=== PATIENT | male | born 1950 | race Caucasian/White ===

== ENCOUNTER 2018-08-16 21:06 | Inpatient (IN) | payer MEDICARE ==
[~2018-08-16] VITALS: Ht 188 cm; Wt 101.5 kg
[2018-08-16 21:38] LABS: BASOPHILS # (AUTO) 0.1 X10'3 (0-0.2); BASOPHILS % (AUTO) 1.2 % (0-1); EOSINOPHILS # (AUTO) 0.1 X10'3 (0-0.9); EOSINOPHILS % (AUTO) 1.5 % (0-6); HEMATOCRIT 41.3 % (42.0-52.0); HEMOGLOBIN 13.6 g/dl (14.0-17.9); LYMPHOCYTES # (AUTO) 2.4 X10'3 (1.1-4.8); LYMPHOCYTES % (AUTO) 24.7 % (21-51); MEAN CORPUSCULAR HEMOGLOBIN 30.8 PG (27.0-31.0); MEAN CORPUSCULAR VOLUME 93.6 FL (78-98); MEAN PLATELET VOLUME 6.3 FL (7.4-10.4); MONOCYTES # (AUTO) 0.7 X10'3 (0-0.9); MONOCYTES % (AUTO) 6.8 % (2-12); NEUTROPHILS # (AUTO) 6.4 X10'3 (1.8-7.7); NEUTROPHILS % (AUTO) 65.8 % (42-75); PLATELET COUNT 339 X10'3 (140-440); RED BLOOD COUNT 4.42 X10'6 (4.70-6.10); RED CELL DISTRIBUTION WIDTH 13.5 % (11.5-14.5); WHITE BLOOD COUNT 9.7 X10'3 (4.5-11.0)
[2018-08-16] MEDS ORDERED: HYDROmorphone inj. 0.5 MG/0.5 ML DISP.SYRIN IV ONE (21:40)
[2018-08-16] MEDS ORDERED: normal saline 1000ML IV soln IVB ONE (21:40)
[2018-08-16] MEDS ORDERED: ondansetron/PF 4mg/2ml inj IV ONE (21:40)
[2018-08-16] MEDS ORDERED: levoFLOXACIN-Levaquin 750MG/D5 150 ML IV ONE (21:40)
[2018-08-16 21:57] LABS: ALANINE AMINOTRANSFERASE 25 U/L (12-78); ALBUMIN 3.2 G/DL (3.4-5.0); ALBUMIN/GLOBULIN RATIO 0.8 (1.1-1.5); ALKALINE PHOSPHATASE 83 IU/L (46-116); ANION GAP 10 (8-16); ASPARTATE AMINO TRANSFERASE 15 U/L (10-37); BILIRUBIN,TOTAL 0.4 MG/DL (0.1-1.0); BLOOD UREA NITROGEN 17 MG/DL (7-18); BUN/CREATININE RATIO 15.5 (5.4-32.0); CALCIUM 8.8 MG/DL (8.5-10.1); CHLORIDE 103 MMOL/L (99-107); GLUCOSE 102 MG/DL (70-104); INR 1.5 INR; PARTIAL THROMBOPLASTIN TIME 39 SECONDS (22-32); SODIUM 139 MMOL/L (135-145); TOTAL CARBON DIOXIDE 26.2 MMOL/L (24-32); TOTAL PROTEIN 7.1 G/DL (6.4-8.2); eGFR 67 ML/MIN
[2018-08-16] MEDS ORDERED: iohexol 350MG/ML 100ml bottle IV ONE (22:00)
[2018-08-16] MEDS ORDERED: enoxaparin 100mg/ml syringe SUBCUT ONE (22:30)
[2018-08-16] MEDS ORDERED: LORA0.5T PO (23:10)
[2018-08-16] MEDS ORDERED: MONT10TA21 PO (23:10)
[2018-08-16] MEDS ORDERED: BENA40TA73 PO (23:10)
[2018-08-16] MEDS ORDERED: LIOT25TA6 PO (23:10)
[2018-08-16] MEDS ORDERED: BUDE10.2 INH (23:10)
[2018-08-16] MEDS ORDERED: LEVO150T PO (23:10)
[2018-08-16] MEDS ORDERED: TIOT18CA3 (23:10)
[2018-08-16] MEDS ORDERED: TIOT4MIS5 (23:10)
[2018-08-16] MEDS ORDERED: RABE20TA28 PO (23:10)
[2018-08-16] MEDS ORDERED: TRAM50TA2 PO (23:10)
[2018-08-16] MEDS ORDERED: WARF3TAB PO (23:12)
[2018-08-17] MEDS ORDERED: magnesium hydroxide 30ml (MOM) UD suspension PO PRN (00:55)
[2018-08-17] MEDS ORDERED: mag hydrox/Alum hydrox/simeth 30ml oral suspension PO PRN (00:55)
[2018-08-17] MEDS ORDERED: HYDROmorphone 1 mg/ml syringe IV PRN ×2 (00:55)
[2018-08-17] MEDS ORDERED: acetaminophen 325mg tablet PO PRN ×2 (00:55)
[2018-08-17 03:00] VITALS: BP 162/86
[2018-08-17] MEDS ORDERED: ipratropium/albuterol 3ml nebule NEB PRN (03:10)
[2018-08-17] MEDS ORDERED: digoxin 250mcg/ml 2ml ampule IV ONE (05:00)
[2018-08-17] MEDS: VANCOMYCIN IV SCH ×2 (05:06→07:00)
[2018-08-17] MEDS: SODIUM CHLORIDE IV SCH ×2 (05:06→07:00)
[2018-08-17] MEDS: [UNRECOGNIZED DRUG - OTHER] IV SCH ×2 (05:06→07:00)
[2018-08-17 06:00] VITALS: BP 173/81
[2018-08-17] MEDS: budesonide 0.5mg/2ml UD nebule IH SCH ×2 (07:07→20:18)
[2018-08-17] MEDS: albuterol 2.5 MG/3 ML nebule NEB SCH ×2 (07:07→10:18)
[2018-08-17] MEDS: docusate sod 100mg capsule PO SCH ×2 (08:00→21:17)
[2018-08-17] MEDS ORDERED: non-formulary drug (Budesonide/Formoterol Fumarate (Symbicort 160-4.5 Mcg Inhaler) 2 PUFFS INH SCH (08:00)
[2018-08-17] MEDS: cefepime 1GM/NS ADD-VANTAGE 100 ML IV SCH ×2 (08:00→16:36)
[2018-08-17] MEDS: enoxaparin 100mg/ml syringe SUBCUT SCH ×2 (08:23→21:17)
[2018-08-17] MEDS: levoTHYROXINE 75mcg tablet PO SCH (08:25)
[2018-08-17] MEDS: lisinopril 20mg tablet PO SCH (08:27)
[2018-08-17] MEDS: montelukast 10mg tablet PO SCH (08:27)
[2018-08-17] MEDS: LIOthyronine 25mcg tablet PO SCH (08:28)
[2018-08-17 09:42] LABS: BASOPHILS # (AUTO) 0.1 X10'3 (0-0.2); BASOPHILS % (AUTO) 0.5 % (0-1); EOSINOPHILS # (AUTO) 0.1 X10'3 (0-0.9); EOSINOPHILS % (AUTO) 0.5 % (0-6); HEMOGLOBIN 13.3 g/dl (14.0-17.9); LYMPHOCYTES # (AUTO) 2.7 X10'3 (1.1-4.8); LYMPHOCYTES % (AUTO) 20.7 % (21-51); MEAN CORPUSCULAR HEMOGLOBIN 31.2 PG (27.0-31.0); MEAN CORPUSCULAR HGB CONC 33.2 % (33.0-36.5); MEAN PLATELET VOLUME 6.5 FL (7.4-10.4); MONOCYTES # (AUTO) 0.8 X10'3 (0-0.9); MONOCYTES % (AUTO) 6.2 % (2-12); NEUTROPHILS # (AUTO) 9.2 X10'3 (1.8-7.7); NEUTROPHILS % (AUTO) 72.1 % (42-75); PLATELET COUNT 295 X10'3 (140-440); RED BLOOD COUNT 4.26 X10'6 (4.70-6.10); RED CELL DISTRIBUTION WIDTH 13.9 % (11.5-14.5); WHITE BLOOD COUNT 12.8 X10'3 (4.5-11.0)
[2018-08-17 09:51] LABS: ANION GAP 8 (8-16); BLOOD UREA NITROGEN 15 MG/DL (7-18); BUN/CREATININE RATIO 13.2 (5.4-32.0); CALCIUM 8.9 MG/DL (8.5-10.1); CHLORIDE 101 MMOL/L (99-107); CREATININE 1.14 MG/DL (0.60-1.10); GLUCOSE 84 MG/DL (70-104); POTASSIUM 4.3 MMOL/L (3.5-5.1); SODIUM 136 MMOL/L (135-145); TOTAL CARBON DIOXIDE 27.1 MMOL/L (24-32); eGFR 64 ML/MIN
[2018-08-17 11:00] VITALS: BP 168/84
[2018-08-17] MEDS: HYDROmorphone/NS 1 mg/ml CADD 50 ML IV SCH ×8 (11:00→23:00)
[2018-08-17] MEDS ORDERED: VANCOMYCIN IV ONE (11:45)
[2018-08-17] MEDS ORDERED: [UNRECOGNIZED DRUG - OTHER] IV ONE (11:45)
[2018-08-17] MEDS ORDERED: SODIUM CHLORIDE IV ONE (11:45)
[2018-08-17] MEDS: ipratropium/albuterol 3ml nebule NEB SCH ×4 (12:00→23:42)
[2018-08-17 15:00] VITALS: BP 123/73
[2018-08-17] MEDS: methylPREDNISolone sod succ 125mg/2ml vial IV SCH ×2 (16:29→21:18)
[2018-08-17 19:00] VITALS: BP 160/84
[2018-08-17] MEDS: lactobacillus rhamnosus 10,000 MMU CELLS/CAPSULE PO SCH (21:17)
[2018-08-17 23:00] VITALS: BP 144/102
[2018-08-18] MEDS: cefepime 1GM/NS ADD-VANTAGE 100 ML IV SCH ×4 (00:50→23:37)
[2018-08-18] MEDS: HYDROmorphone/NS 1 mg/ml CADD 50 ML IV SCH ×12 (00:55→23:00)
[2018-08-18] MEDS: methylPREDNISolone sod succ 125mg/2ml vial IV SCH ×4 (02:44→23:38)
[2018-08-18 03:00] VITALS: BP 134/79
[2018-08-18] MEDS: ipratropium/albuterol 3ml nebule NEB SCH ×6 (03:10→23:50)
[2018-08-18 05:07] LABS: BASOPHILS # (AUTO) 0.1 X10'3 (0-0.2); EOSINOPHILS % (AUTO) 0 % (0-6); HEMATOCRIT 41.5 % (42.0-52.0); HEMOGLOBIN 13.9 g/dl (14.0-17.9); LYMPHOCYTES # (AUTO) 0.7 X10'3 (1.1-4.8); LYMPHOCYTES % (AUTO) 5.7 % (21-51); MEAN CORPUSCULAR HEMOGLOBIN 31.4 PG (27.0-31.0); MEAN CORPUSCULAR HGB CONC 33.5 % (33.0-36.5); MEAN CORPUSCULAR VOLUME 93.7 FL (78-98); MONOCYTES # (AUTO) 0.1 X10'3 (0-0.9); MONOCYTES % (AUTO) 0.6 % (2-12); NEUTROPHILS # (AUTO) 10.7 X10'3 (1.8-7.7); NEUTROPHILS % (AUTO) 92.7 % (42-75); PLATELET COUNT 329 X10'3 (140-440); RED BLOOD COUNT 4.43 X10'6 (4.70-6.10); RED CELL DISTRIBUTION WIDTH 13.4 % (11.5-14.5); WHITE BLOOD COUNT 11.5 X10'3 (4.5-11.0)
[2018-08-18 05:25] LABS: ALBUMIN 3.1 G/DL (3.4-5.0); ANION GAP 12 (8-16); BLOOD UREA NITROGEN 22 MG/DL (7-18); BUN/CREATININE RATIO 16.8 (5.4-32.0); CALCIUM 9.6 MG/DL (8.5-10.1); CHLORIDE 101 MMOL/L (99-107); CREATININE 1.31 MG/DL (0.60-1.10); GLUCOSE 183 MG/DL (70-104); POTASSIUM 3.9 MMOL/L (3.5-5.1); SODIUM 137 MMOL/L (135-145); TOTAL CARBON DIOXIDE 23.6 MMOL/L (24-32); eGFR 54 ML/MIN
[2018-08-18 06:00] VITALS: BP 102/68
[2018-08-18] MEDS: budesonide 0.5mg/2ml UD nebule IH SCH ×2 (07:51→19:59)
[2018-08-18] MEDS: docusate sod 100mg capsule PO SCH ×2 (08:00→20:00)
[2018-08-18] MEDS: lactobacillus rhamnosus 10,000 MMU CELLS/CAPSULE PO SCH ×2 (09:04→20:59)
[2018-08-18] MEDS: levoTHYROXINE 75mcg tablet PO SCH (09:05)
[2018-08-18] MEDS: montelukast 10mg tablet PO SCH (09:06)
[2018-08-18] MEDS: lisinopril 20mg tablet PO SCH (09:07)
[2018-08-18] MEDS: enoxaparin 100mg/ml syringe SUBCUT SCH ×2 (09:08→20:41)
[2018-08-18] MEDS: LIOthyronine 25mcg tablet PO SCH (09:09)
[2018-08-18] MEDS: pantoprazole 40mg Tablet.DR PO SCH (09:14)
[2018-08-18 11:00] VITALS: BP 107/55
[2018-08-18 15:00] VITALS: BP 131/70
[2018-08-18] MEDS: ondansetron/PF 4mg/2ml inj IV PRN (17:07)
[2018-08-18 18:00] VITALS: BP 130/65
[2018-08-18] MEDS: Melatonin 3mg tablet PO SCH (20:59)
[2018-08-18] MEDS: temazepam 15mg capsule PO PRN (21:27)
[2018-08-18 22:00] VITALS: BP 117/60
[2018-08-19] MEDS: HYDROmorphone/NS 1 mg/ml CADD 50 ML IV SCH ×12 (01:00→23:00)
[2018-08-19 02:00] VITALS: BP 146/80
[2018-08-19] MEDS ORDERED: VANCOMYCIN LEVEL IV NR ×2 (03:30→15:30)
[2018-08-19] MEDS: ondansetron/PF 4mg/2ml inj IV PRN (04:55)
[2018-08-19 06:00] VITALS: BP 148/83
[2018-08-19 06:02] LABS: BASOPHILS # (AUTO) 0.2 X10'3 (0-0.2); BASOPHILS % (AUTO) 0.9 % (0-1); EOSINOPHILS % (AUTO) 0 % (0-6); HEMATOCRIT 37.8 % (42.0-52.0); HEMOGLOBIN 12.5 g/dl (14.0-17.9); LYMPHOCYTES # (AUTO) 0.9 X10'3 (1.1-4.8); LYMPHOCYTES % (AUTO) 5.3 % (21-51); MEAN CORPUSCULAR HEMOGLOBIN 31.2 PG (27.0-31.0); MEAN CORPUSCULAR VOLUME 94.3 FL (78-98); MEAN PLATELET VOLUME 7.3 FL (7.4-10.4); MONOCYTES # (AUTO) 0.3 X10'3 (0-0.9); MONOCYTES % (AUTO) 1.6 % (2-12); NEUTROPHILS # (AUTO) 15.7 X10'3 (1.8-7.7); NEUTROPHILS % (AUTO) 92.2 % (42-75); PLATELET COUNT 310 X10'3 (140-440); RED BLOOD COUNT 4.01 X10'6 (4.70-6.10); RED CELL DISTRIBUTION WIDTH 13.5 % (11.5-14.5)
[2018-08-19 07:06] LABS: ALBUMIN 2.8 G/DL (3.4-5.0); ANION GAP 8 (8-16); BLOOD UREA NITROGEN 33 MG/DL (7-18); BUN/CREATININE RATIO 27.3 (5.4-32.0); CALCIUM 8.9 MG/DL (8.5-10.1); CHLORIDE 104 MMOL/L (99-107); CREATININE 1.21 MG/DL (0.60-1.10); GLUCOSE 137 MG/DL (70-104); POTASSIUM 4.2 MMOL/L (3.5-5.1); SODIUM 139 MMOL/L (135-145); TOTAL CARBON DIOXIDE 26.8 MMOL/L (24-32); eGFR 60 ML/MIN
[2018-08-19] MEDS: pantoprazole 40mg Tablet.DR PO SCH (07:30)
[2018-08-19] MEDS: budesonide 0.5mg/2ml UD nebule IH SCH ×2 (07:32→20:05)
[2018-08-19] MEDS: ipratropium/albuterol 3ml nebule NEB SCH ×4 (07:32→23:52)
[2018-08-19] MEDS: docusate sod 100mg capsule PO SCH ×2 (08:00→20:00)
[2018-08-19] MEDS: cefepime 1GM/NS ADD-VANTAGE 100 ML IV SCH ×3 (09:27→23:26)
[2018-08-19] MEDS: methylPREDNISolone sod succ 125mg/2ml vial IV SCH ×2 (09:27→20:51)
[2018-08-19] MEDS: enoxaparin 100mg/ml syringe SUBCUT SCH ×2 (09:27→20:35)
[2018-08-19] MEDS: LIOthyronine 25mcg tablet PO SCH (09:28)
[2018-08-19] MEDS: levoTHYROXINE 75mcg tablet PO SCH (09:28)
[2018-08-19] MEDS: lactobacillus rhamnosus 10,000 MMU CELLS/CAPSULE PO SCH ×2 (09:31→20:52)
[2018-08-19] MEDS: montelukast 10mg tablet PO SCH (09:32)
[2018-08-19] MEDS: lisinopril 20mg tablet PO SCH (09:32)
[2018-08-19] MEDS: RABEPRAZOLE PO SCH (14:01)
[2018-08-19 15:00] VITALS: BP 138/74
[2018-08-19 19:00] VITALS: BP 145/75
[2018-08-19] MEDS: temazepam 15mg capsule PO PRN (20:33)
[2018-08-19] MEDS: Melatonin 3mg tablet PO SCH (20:36)
[2018-08-19 23:00] VITALS: BP 144/74
[2018-08-20] MEDS: HYDROmorphone/NS 1 mg/ml CADD 50 ML IV SCH ×12 (01:00→23:00)
[2018-08-20 03:00] VITALS: BP 129/65
[2018-08-20] MEDS: ipratropium/albuterol 3ml nebule NEB SCH ×4 (04:04→19:38)
[2018-08-20 06:09] LABS: BASOPHILS # (AUTO) 0.1 X10'3 (0-0.2); BASOPHILS % (AUTO) 0.5 % (0-1); EOSINOPHILS # (AUTO) 0.2 X10'3 (0-0.9); EOSINOPHILS % (AUTO) 1.4 % (0-6); HEMATOCRIT 35.4 % (42.0-52.0); HEMOGLOBIN 11.7 g/dl (14.0-17.9); LYMPHOCYTES # (AUTO) 0.7 X10'3 (1.1-4.8); LYMPHOCYTES % (AUTO) 5.8 % (21-51); MEAN CORPUSCULAR HEMOGLOBIN 31.1 PG (27.0-31.0); MEAN CORPUSCULAR VOLUME 94.2 FL (78-98); MEAN PLATELET VOLUME 7.5 FL (7.4-10.4); MONOCYTES # (AUTO) 0.3 X10'3 (0-0.9); MONOCYTES % (AUTO) 2.1 % (2-12); NEUTROPHILS # (AUTO) 10.9 X10'3 (1.8-7.7); NEUTROPHILS % (AUTO) 90.2 % (42-75); PLATELET COUNT 308 X10'3 (140-440); RED BLOOD COUNT 3.75 X10'6 (4.70-6.10); RED CELL DISTRIBUTION WIDTH 13.5 % (11.5-14.5); WHITE BLOOD COUNT 12.1 X10'3 (4.5-11.0)
[2018-08-20 06:24] LABS: ALBUMIN 2.6 G/DL (3.4-5.0); ANION GAP 11 (8-16); BLOOD UREA NITROGEN 25 MG/DL (7-18); BUN/CREATININE RATIO 21.2 (5.4-32.0); CALCIUM 8.5 MG/DL (8.5-10.1); CHLORIDE 105 MMOL/L (99-107); CREATININE 1.18 MG/DL (0.60-1.10); GLUCOSE 191 MG/DL (70-104); POTASSIUM 4.3 MMOL/L (3.5-5.1); SODIUM 139 MMOL/L (135-145); TOTAL CARBON DIOXIDE 22.6 MMOL/L (24-32); eGFR 61 ML/MIN
[2018-08-20] MEDS: RABEPRAZOLE PO SCH (07:34)
[2018-08-20] MEDS: montelukast 10mg tablet PO SCH (07:35)
[2018-08-20] MEDS: LIOthyronine 25mcg tablet PO SCH (07:35)
[2018-08-20] MEDS: levoTHYROXINE 75mcg tablet PO SCH (07:35)
[2018-08-20] MEDS: lisinopril 20mg tablet PO SCH (07:35)
[2018-08-20] MEDS: lactobacillus rhamnosus 10,000 MMU CELLS/CAPSULE PO SCH ×2 (07:35→20:40)
[2018-08-20] MEDS: cefepime 1GM/NS ADD-VANTAGE 100 ML IV SCH ×2 (07:37→16:59)
[2018-08-20] MEDS: methylPREDNISolone sod succ 125mg/2ml vial IV SCH (07:37)
[2018-08-20] MEDS: docusate sod 100mg capsule PO SCH ×2 (07:37→20:00)
[2018-08-20] MEDS: enoxaparin 100mg/ml syringe SUBCUT SCH ×2 (08:00→20:42)
[2018-08-20] MEDS: budesonide 0.5mg/2ml UD nebule IH SCH ×2 (08:29→19:38)
[2018-08-20 11:00] VITALS: BP_SYST 148; BP_SYST 93; BP_DIAS 65; BP_DIAS 68
[2018-08-20] MEDS: furosemide 20MG tablet PO SCH (11:37)
[2018-08-20 15:00] VITALS: BP 137/77
[2018-08-20 19:00] VITALS: BP 157/91
[2018-08-20] MEDS: temazepam 15mg capsule PO PRN (20:40)
[2018-08-20] MEDS: methylPREDNISolone sod succ/PF 40mg inj. IV SCH (20:40)
[2018-08-20] MEDS: Melatonin 3mg tablet PO SCH (20:41)
[2018-08-20 23:00] VITALS: BP 160/78
[2018-08-21] MEDS: cefepime 1GM/NS ADD-VANTAGE 100 ML IV SCH ×3 (00:22→17:28)
[2018-08-21] MEDS: HYDROmorphone/NS 1 mg/ml CADD 50 ML IV SCH ×12 (01:00→23:00)
[2018-08-21 03:00] VITALS: BP 130/55
[2018-08-21] MEDS: ipratropium/albuterol 3ml nebule NEB SCH ×7 (04:00→23:17)
[2018-08-21 06:32] LABS: BASOPHILS # (AUTO) 0.1 X10'3 (0-0.2); BASOPHILS % (AUTO) 0.8 % (0-1); EOSINOPHILS % (AUTO) 0 % (0-6); HEMATOCRIT 38.5 % (42.0-52.0); HEMOGLOBIN 12.7 g/dl (14.0-17.9); LYMPHOCYTES % (AUTO) 12.6 % (21-51); MEAN CORPUSCULAR HEMOGLOBIN 31.1 PG (27.0-31.0); MEAN CORPUSCULAR VOLUME 94.2 FL (78-98); MEAN PLATELET VOLUME 7.5 FL (7.4-10.4); MONOCYTES # (AUTO) 0.3 X10'3 (0-0.9); MONOCYTES % (AUTO) 4.1 % (2-12); NEUTROPHILS # (AUTO) 6.8 X10'3 (1.8-7.7); NEUTROPHILS % (AUTO) 82.5 % (42-75); PLATELET COUNT 331 X10'3 (140-440); RED BLOOD COUNT 4.08 X10'6 (4.70-6.10); RED CELL DISTRIBUTION WIDTH 13.5 % (11.5-14.5); WHITE BLOOD COUNT 8.3 X10'3 (4.5-11.0)
[2018-08-21 06:38] LABS: ALBUMIN 2.8 G/DL (3.4-5.0); ANION GAP 7 (8-16); BLOOD UREA NITROGEN 23 MG/DL (7-18); BUN/CREATININE RATIO 22.1 (5.4-32.0); CALCIUM 8.7 MG/DL (8.5-10.1); CHLORIDE 105 MMOL/L (99-107); CREATININE 1.04 MG/DL (0.60-1.10); GLUCOSE 119 MG/DL (70-104); POTASSIUM 4.3 MMOL/L (3.5-5.1); SODIUM 139 MMOL/L (135-145); TOTAL CARBON DIOXIDE 27.2 MMOL/L (24-32); eGFR 71 ML/MIN
[2018-08-21 07:00] VITALS: BP 166/79
[2018-08-21] MEDS: methylPREDNISolone sod succ/PF 40mg inj. IV SCH ×2 (07:20→20:14)
[2018-08-21] MEDS: montelukast 10mg tablet PO SCH (07:21)
[2018-08-21] MEDS: LIOthyronine 25mcg tablet PO SCH (07:21)
[2018-08-21] MEDS: levoTHYROXINE 125mcg tablet PO SCH (07:21)
[2018-08-21] MEDS: furosemide 20MG tablet PO SCH ×2 (07:21→20:26)
[2018-08-21] MEDS: lisinopril 20mg tablet PO SCH (07:21)
[2018-08-21] MEDS: enoxaparin 100mg/ml syringe SUBCUT SCH ×2 (07:21→20:16)
[2018-08-21] MEDS: lactobacillus rhamnosus 10,000 MMU CELLS/CAPSULE PO SCH ×2 (07:21→20:14)
[2018-08-21] MEDS: docusate sod 100mg capsule PO SCH ×2 (07:22→20:00)
[2018-08-21] MEDS: RABEPRAZOLE PO SCH (07:22)
[2018-08-21] MEDS: budesonide 0.5mg/2ml UD nebule IH SCH ×2 (08:03→19:34)
[2018-08-21 11:00] VITALS: BP 121/78
[2018-08-21 15:00] VITALS: BP 141/81
[2018-08-21 18:00] VITALS: BP 160/75
[2018-08-21] MEDS: Melatonin 3mg tablet PO SCH (21:29)
[2018-08-21 22:00] VITALS: BP 157/74
[2018-08-21] MEDS: temazepam 15mg capsule PO PRN (22:15)
[2018-08-22] MEDS: cefepime 1GM/NS ADD-VANTAGE 100 ML IV SCH ×4 (00:21→23:40)
[2018-08-22] MEDS: HYDROmorphone/NS 1 mg/ml CADD 50 ML IV SCH ×12 (00:48→23:00)
[2018-08-22 02:00] VITALS: BP 142/69
[2018-08-22] MEDS: ipratropium/albuterol 3ml nebule NEB SCH ×6 (03:12→23:00)
[2018-08-22 06:00] VITALS: BP 174/88
[2018-08-22 06:32] LABS: BASOPHILS # (AUTO) 0.1 X10'3 (0-0.2); BASOPHILS % (AUTO) 1.1 % (0-1); EOSINOPHILS % (AUTO) 0 % (0-6); HEMATOCRIT 36.9 % (42.0-52.0); HEMOGLOBIN 12.3 g/dl (14.0-17.9); LYMPHOCYTES # (AUTO) 1.4 X10'3 (1.1-4.8); LYMPHOCYTES % (AUTO) 17.8 % (21-51); MEAN CORPUSCULAR HEMOGLOBIN 31.1 PG (27.0-31.0); MEAN CORPUSCULAR HGB CONC 33.4 % (33.0-36.5); MEAN CORPUSCULAR VOLUME 93.3 FL (78-98); MEAN PLATELET VOLUME 7.2 FL (7.4-10.4); MONOCYTES # (AUTO) 0.4 X10'3 (0-0.9); MONOCYTES % (AUTO) 5.4 % (2-12); NEUTROPHILS # (AUTO) 5.9 X10'3 (1.8-7.7); NEUTROPHILS % (AUTO) 75.7 % (42-75); PLATELET COUNT 313 X10'3 (140-440); RED BLOOD COUNT 3.95 X10'6 (4.70-6.10); RED CELL DISTRIBUTION WIDTH 13.4 % (11.5-14.5); WHITE BLOOD COUNT 7.8 X10'3 (4.5-11.0)
[2018-08-22 06:46] LABS: ALBUMIN 2.7 G/DL (3.4-5.0); ANION GAP 7 (8-16); BLOOD UREA NITROGEN 21 MG/DL (7-18); BUN/CREATININE RATIO 19.3 (5.4-32.0); CALCIUM 8.4 MG/DL (8.5-10.1); CHLORIDE 103 MMOL/L (99-107); CREATININE 1.09 MG/DL (0.60-1.10); GLUCOSE 134 MG/DL (70-104); SODIUM 140 MMOL/L (135-145); TOTAL CARBON DIOXIDE 29.8 MMOL/L (24-32); eGFR 67 ML/MIN
[2018-08-22] MEDS: RABEPRAZOLE PO SCH (08:00)
[2018-08-22] MEDS: docusate sod 100mg capsule PO SCH (08:00)
[2018-08-22] MEDS: lisinopril 20mg tablet PO SCH (08:55)
[2018-08-22] MEDS: enoxaparin 100mg/ml syringe SUBCUT SCH ×2 (09:01→19:55)
[2018-08-22] MEDS: methylPREDNISolone sod succ/PF 40mg inj. IV SCH ×2 (09:04→19:57)
[2018-08-22] MEDS: furosemide 20MG tablet PO SCH ×2 (09:10→19:57)
[2018-08-22] MEDS: montelukast 10mg tablet PO SCH (09:10)
[2018-08-22] MEDS: lactobacillus rhamnosus 10,000 MMU CELLS/CAPSULE PO SCH ×2 (09:10→19:57)
[2018-08-22] MEDS: levoTHYROXINE 125mcg tablet PO SCH (09:11)
[2018-08-22] MEDS: LIOthyronine 25mcg tablet PO SCH (09:11)
[2018-08-22] MEDS: budesonide 0.5mg/2ml UD nebule IH SCH ×2 (09:30→19:14)
[2018-08-22 10:00] VITALS: BP 178/89
[2018-08-22] MEDS ORDERED: ipratropium/albuterol 3ml nebule NEB PRN (10:50)
[2018-08-22 15:00] VITALS: BP 163/90
[2018-08-22 18:00] VITALS: BP 160/83
[2018-08-22] MEDS: Melatonin 3mg tablet PO PRN (20:59)
[2018-08-22] MEDS: temazepam 15mg capsule PO PRN (21:31)
[2018-08-22 22:00] VITALS: BP 169/79
[2018-08-23] VITALS (7 sets, daily range): BP systolic 137–167; BP diastolic 74–126
[2018-08-23] MEDS: HYDROmorphone/NS 1 mg/ml CADD 50 ML IV SCH ×12 (01:00→22:12)
[2018-08-23 05:54] LABS: BASOPHILS # (AUTO) 0.1 X10'3 (0-0.2); BASOPHILS % (AUTO) 0.7 % (0-1); EOSINOPHILS # (AUTO) 0.1 X10'3 (0-0.9); EOSINOPHILS % (AUTO) 1.4 % (0-6); HEMATOCRIT 39.1 % (42.0-52.0); HEMOGLOBIN 13.1 g/dl (14.0-17.9); LYMPHOCYTES # (AUTO) 1.7 X10'3 (1.1-4.8); LYMPHOCYTES % (AUTO) 16.8 % (21-51); MEAN CORPUSCULAR HEMOGLOBIN 31.3 PG (27.0-31.0); MEAN CORPUSCULAR HGB CONC 33.4 % (33.0-36.5); MEAN CORPUSCULAR VOLUME 93.8 FL (78-98); MEAN PLATELET VOLUME 7.1 FL (7.4-10.4); MONOCYTES # (AUTO) 0.5 X10'3 (0-0.9); MONOCYTES % (AUTO) 5.3 % (2-12); NEUTROPHILS # (AUTO) 7.6 X10'3 (1.8-7.7); NEUTROPHILS % (AUTO) 75.8 % (42-75); PLATELET COUNT 334 X10'3 (140-440); RED BLOOD COUNT 4.17 X10'6 (4.70-6.10); RED CELL DISTRIBUTION WIDTH 13.7 % (11.5-14.5)
[2018-08-23 06:06] LABS: ALBUMIN 2.7 G/DL (3.4-5.0); ANION GAP 7 (8-16); BLOOD UREA NITROGEN 21 MG/DL (7-18); BUN/CREATININE RATIO 19.6 (5.4-32.0); CALCIUM 8.7 MG/DL (8.5-10.1); CHLORIDE 102 MMOL/L (99-107); CREATININE 1.07 MG/DL (0.60-1.10); GLUCOSE 114 MG/DL (70-104); POTASSIUM 4.2 MMOL/L (3.5-5.1); SODIUM 139 MMOL/L (135-145); TOTAL CARBON DIOXIDE 30.3 MMOL/L (24-32); eGFR 69 ML/MIN
[2018-08-23] MEDS: LIOthyronine 25mcg tablet PO SCH (07:25)
[2018-08-23] MEDS: levoTHYROXINE 75mcg tablet PO SCH (07:26)
[2018-08-23] MEDS: lisinopril 20mg tablet PO SCH (07:27)
[2018-08-23] MEDS: furosemide 20MG tablet PO SCH ×2 (07:28→20:11)
[2018-08-23] MEDS: montelukast 10mg tablet PO SCH (07:28)
[2018-08-23] MEDS: lactobacillus rhamnosus 10,000 MMU CELLS/CAPSULE PO SCH ×2 (07:28→20:11)
[2018-08-23] MEDS: RABEPRAZOLE PO SCH (07:29)
[2018-08-23] MEDS: enoxaparin 100mg/ml syringe SUBCUT SCH ×2 (07:33→20:18)
[2018-08-23] MEDS: methylPREDNISolone sod succ/PF 40mg inj. IV SCH ×2 (07:39→20:12)
[2018-08-23] MEDS: cefepime 1GM/NS ADD-VANTAGE 100 ML IV SCH ×2 (07:47→15:32)
[2018-08-23] MEDS: ipratropium/albuterol 3ml nebule NEB SCH ×5 (08:28→23:00)
[2018-08-23] MEDS: budesonide 0.5mg/2ml UD nebule IH SCH ×2 (08:28→20:00)
[2018-08-23] MEDS: LORazepam 2 mg/ml vial IV PRN (15:31)
[2018-08-23] MEDS: Melatonin 3mg tablet PO PRN (21:52)
[2018-08-23] MEDS: temazepam 15mg capsule PO PRN (22:20)
[2018-08-24] MEDS: cefepime 1GM/NS ADD-VANTAGE 100 ML IV SCH ×3 (00:05→16:40)
[2018-08-24] MEDS: LORazepam 2 mg/ml vial IV PRN ×3 (00:18→19:12)
[2018-08-24] MEDS: HYDROmorphone/NS 1 mg/ml CADD 50 ML IV SCH ×12 (01:00→23:00)
[2018-08-24 02:00] VITALS: BP 115/76
[2018-08-24 06:05] LABS: BASOPHILS # (AUTO) 0.1 X10'3 (0-0.2); BASOPHILS % (AUTO) 1.2 % (0-1); EOSINOPHILS % (AUTO) 0 % (0-6); HEMATOCRIT 39.5 % (42.0-52.0); HEMOGLOBIN 12.9 g/dl (14.0-17.9); LYMPHOCYTES # (AUTO) 1.9 X10'3 (1.1-4.8); LYMPHOCYTES % (AUTO) 18.5 % (21-51); MEAN CORPUSCULAR HEMOGLOBIN 30.8 PG (27.0-31.0); MEAN CORPUSCULAR HGB CONC 32.7 % (33.0-36.5); MEAN CORPUSCULAR VOLUME 94.2 FL (78-98); MEAN PLATELET VOLUME 7.4 FL (7.4-10.4); MONOCYTES # (AUTO) 0.5 X10'3 (0-0.9); MONOCYTES % (AUTO) 4.9 % (2-12); NEUTROPHILS # (AUTO) 7.7 X10'3 (1.8-7.7); NEUTROPHILS % (AUTO) 75.4 % (42-75); PLATELET COUNT 322 X10'3 (140-440); RED BLOOD COUNT 4.19 X10'6 (4.70-6.10); RED CELL DISTRIBUTION WIDTH 13.8 % (11.5-14.5); WHITE BLOOD COUNT 10.2 X10'3 (4.5-11.0)
[2018-08-24 06:10] LABS: ALBUMIN 2.7 G/DL (3.4-5.0); ANION GAP 8 (8-16); BLOOD UREA NITROGEN 23 MG/DL (7-18); BUN/CREATININE RATIO 19.8 (5.4-32.0); CALCIUM 8.5 MG/DL (8.5-10.1); CHLORIDE 101 MMOL/L (99-107); CREATININE 1.16 MG/DL (0.60-1.10); GLUCOSE 137 MG/DL (70-104); POTASSIUM 4.3 MMOL/L (3.5-5.1); SODIUM 139 MMOL/L (135-145); TOTAL CARBON DIOXIDE 30.1 MMOL/L (24-32); eGFR 63 ML/MIN
[2018-08-24 07:00] VITALS: BP 135/80
[2018-08-24] MEDS: ipratropium/albuterol 3ml nebule NEB SCH ×5 (07:00→23:30)
[2018-08-24] MEDS: budesonide 0.5mg/2ml UD nebule IH SCH ×2 (08:00→19:28)
[2018-08-24] MEDS: enoxaparin 100mg/ml syringe SUBCUT SCH ×2 (09:10→19:12)
[2018-08-24] MEDS: LIOthyronine 25mcg tablet PO SCH (09:15)
[2018-08-24] MEDS: lactobacillus rhamnosus 10,000 MMU CELLS/CAPSULE PO SCH ×2 (09:17→19:12)
[2018-08-24] MEDS: furosemide 20MG tablet PO SCH ×2 (09:18→19:12)
[2018-08-24] MEDS: montelukast 10mg tablet PO SCH (09:18)
[2018-08-24] MEDS: RABEPRAZOLE PO SCH (09:19)
[2018-08-24] MEDS: levoTHYROXINE 75mcg tablet PO SCH (09:19)
[2018-08-24] MEDS: methylPREDNISolone sod succ/PF 40mg inj. IV SCH (09:32)
[2018-08-24] MEDS: lisinopril 20mg tablet PO SCH (09:54)
[2018-08-24 11:00] VITALS: BP 119/84
[2018-08-24 15:00] VITALS: BP 128/74
[2018-08-24 18:00] VITALS: BP 105/78
[2018-08-24 22:00] VITALS: BP 115/66
[2018-08-25] MEDS: HYDROmorphone/NS 1 mg/ml CADD 50 ML IV SCH ×6 (01:00→10:00)
[2018-08-25 06:00] VITALS: BP 135/69
[2018-08-25 06:12] LABS: BASOPHILS % (AUTO) 0.1 % (0-1); EOSINOPHILS # (AUTO) 0.2 X10'3 (0-0.9); EOSINOPHILS % (AUTO) 1.7 % (0-6); HEMATOCRIT 40.7 % (42.0-52.0); HEMOGLOBIN 13.4 g/dl (14.0-17.9); LYMPHOCYTES # (AUTO) 3.9 X10'3 (1.1-4.8); LYMPHOCYTES % (AUTO) 32.5 % (21-51); MEAN CORPUSCULAR HGB CONC 32.9 % (33.0-36.5); MEAN CORPUSCULAR VOLUME 94.3 FL (78-98); MEAN PLATELET VOLUME 7.2 FL (7.4-10.4); MONOCYTES # (AUTO) 0.9 X10'3 (0-0.9); MONOCYTES % (AUTO) 7.8 % (2-12); NEUTROPHILS % (AUTO) 57.9 % (42-75); PLATELET COUNT 371 X10'3 (140-440); RED BLOOD COUNT 4.32 X10'6 (4.70-6.10); RED CELL DISTRIBUTION WIDTH 14.1 % (11.5-14.5)
[2018-08-25] MEDS: ipratropium/albuterol 3ml nebule NEB SCH ×4 (07:00→23:00)
[2018-08-25] MEDS: budesonide 0.5mg/2ml UD nebule IH SCH ×2 (07:00→19:22)
[2018-08-25 07:10] LABS: ALBUMIN 2.6 G/DL (3.4-5.0); ANION GAP 8 (8-16); BLOOD UREA NITROGEN 29 MG/DL (7-18); BUN/CREATININE RATIO 22.5 (5.4-32.0); CALCIUM 8.3 MG/DL (8.5-10.1); CHLORIDE 104 MMOL/L (99-107); CREATININE 1.29 MG/DL (0.60-1.10); GLUCOSE 129 MG/DL (70-104); POTASSIUM 3.8 MMOL/L (3.5-5.1); SODIUM 142 MMOL/L (135-145); TOTAL CARBON DIOXIDE 29.8 MMOL/L (24-32); eGFR 55 ML/MIN
[2018-08-25] MEDS: LORazepam 2 mg/ml vial IV PRN ×2 (07:56→17:49)
[2018-08-25] MEDS ORDERED: methylPREDNISolone sod succ/PF 40mg inj. IV SCH (08:00)
[2018-08-25] MEDS: LIOthyronine 25mcg tablet PO SCH (08:01)
[2018-08-25] MEDS: levoTHYROXINE 75mcg tablet PO SCH (08:01)
[2018-08-25] MEDS: lactobacillus rhamnosus 10,000 MMU CELLS/CAPSULE PO SCH ×2 (08:04→20:11)
[2018-08-25] MEDS: montelukast 10mg tablet PO SCH (08:04)
[2018-08-25] MEDS: lisinopril 20mg tablet PO SCH (08:15)
[2018-08-25] MEDS: furosemide 20MG tablet PO SCH (08:16)
[2018-08-25] MEDS: enoxaparin 100mg/ml syringe SUBCUT SCH ×2 (08:23→20:09)
[2018-08-25] MEDS: RABEPRAZOLE PO SCH (08:24)
[2018-08-25] MEDS ORDERED: diltiazem 5mg/ml 5ml inj. IV ONE (08:25)
[2018-08-25 11:00] VITALS: BP 130/76
[2018-08-25] MEDS ORDERED: metoprolol tartrate 1mg/ml inj IV PRN ×2 (11:00→16:00)
[2018-08-25] MEDS: HYDROmorphone 1 mg/ml syringe IV PRN ×2 (11:38→20:29)
[2018-08-25] MEDS ORDERED: metoprolol tartrate 12.5mg (1/2 tablet) PO SCH ×2 (15:30→16:30)
[2018-08-25 16:49] LABS: ALBUMIN 3.1 G/DL (3.4-5.0); ANION GAP 7 (8-16); BLOOD UREA NITROGEN 22 MG/DL (7-18); BUN/CREATININE RATIO 15.9 (5.4-32.0); CALCIUM 8.7 MG/DL (8.5-10.1); CHLORIDE 103 MMOL/L (99-107); CREATININE 1.38 MG/DL (0.60-1.10); GLUCOSE 122 MG/DL (70-104); MAGNESIUM 1.9 MG/DL (1.5-2.4); PHOSPHORUS 3.5 MG/DL (2.3-4.5); POTASSIUM 4.7 MMOL/L (3.5-5.1); SODIUM 140 MMOL/L (135-145); TOTAL CARBON DIOXIDE 30.2 MMOL/L (24-32); TROPONIN I < 0.04 NG/ML (0.0-0.05); eGFR 51 ML/MIN
[2018-08-25] MEDS ORDERED: diltiazem-NS 100mg/100ml 100 ML IV SCH (17:00)
[2018-08-25 18:00] VITALS: BP 167/98
[2018-08-25] MEDS: temazepam 15mg capsule PO PRN (20:29)
[2018-08-25] MEDS: Melatonin 3mg tablet PO PRN (20:31)
[2018-08-25 22:00] VITALS: BP 93/71
[2018-08-26] MEDS: HYDROmorphone 1 mg/ml syringe IV PRN ×2 (00:47→05:04)
[2018-08-26] MEDS: LORazepam 2 mg/ml vial IV PRN (01:59)
[2018-08-26 02:00] VITALS: BP 116/67
[2018-08-26 05:32] LABS: BASOPHILS # (AUTO) 0.2 X10'3 (0-0.2); BASOPHILS % (AUTO) 1.2 % (0-1); EOSINOPHILS # (AUTO) 0.2 X10'3 (0-0.9); EOSINOPHILS % (AUTO) 1.2 % (0-6); HEMOGLOBIN 13.4 g/dl (14.0-17.9); LYMPHOCYTES # (AUTO) 3.8 X10'3 (1.1-4.8); LYMPHOCYTES % (AUTO) 29.4 % (21-51); MEAN CORPUSCULAR HGB CONC 32.7 % (33.0-36.5); MEAN CORPUSCULAR VOLUME 94.7 FL (78-98); MEAN PLATELET VOLUME 7.1 FL (7.4-10.4); MONOCYTES # (AUTO) 0.8 X10'3 (0-0.9); MONOCYTES % (AUTO) 6.2 % (2-12); PLATELET COUNT 336 X10'3 (140-440); RED BLOOD COUNT 4.33 X10'6 (4.70-6.10); WHITE BLOOD COUNT 12.9 X10'3 (4.5-11.0)
[2018-08-26 05:49] LABS: ALBUMIN 2.5 G/DL (3.4-5.0); ANION GAP 9 (8-16); BLOOD UREA NITROGEN 20 MG/DL (7-18); BUN/CREATININE RATIO 15.5 (5.4-32.0); CALCIUM 8.1 MG/DL (8.5-10.1); CHLORIDE 104 MMOL/L (99-107); CREATININE 1.29 MG/DL (0.60-1.10); GLUCOSE 129 MG/DL (70-104); MAGNESIUM 1.8 MG/DL (1.5-2.4); POTASSIUM 3.8 MMOL/L (3.5-5.1); SODIUM 140 MMOL/L (135-145); TOTAL CARBON DIOXIDE 27.3 MMOL/L (24-32); eGFR 55 ML/MIN
[2018-08-26 06:00] VITALS: BP 131/74
[2018-08-26] MEDS: ipratropium/albuterol 3ml nebule NEB SCH ×3 (07:00→15:00)
[2018-08-26] MEDS ORDERED: methylPREDNISolone sod succ/PF 40mg inj. IV SCH (08:00)
[2018-08-26] MEDS ORDERED: furosemide 20MG tablet PO SCH (08:00)
[2018-08-26] MEDS: budesonide 0.5mg/2ml UD nebule IH SCH (08:00)
[2018-08-26] MEDS: lactobacillus rhamnosus 10,000 MMU CELLS/CAPSULE PO SCH ×2 (08:07→08:10)
[2018-08-26] MEDS: LIOthyronine 25mcg tablet PO SCH (08:07)
[2018-08-26] MEDS: montelukast 10mg tablet PO SCH (08:07)
[2018-08-26] MEDS: levoTHYROXINE 75mcg tablet PO SCH (08:07)
[2018-08-26] MEDS: RABEPRAZOLE PO SCH (08:07)
[2018-08-26] MEDS: enoxaparin 100mg/ml syringe SUBCUT SCH (08:08)
[2018-08-26] MEDS ORDERED: METO25TA6 PO (10:45)
[2018-08-26] MEDS ORDERED: APIX5TAB3 PO (10:45)
[2018-08-26] MEDS ORDERED: FURO-150 PO (10:45)
[2018-08-26 11:00] VITALS: BP 152/76
[2018-08-26] MEDS ORDERED: ENOX100D5 SUBCUT (12:23)
[2018-08-27] MEDS ORDERED: diltiazem-D5W 125mg/125ml 125 ML IV SCH (09:00)
== END 2018-08-26 14:25 | disposition home or self-care (01) | DRG 871 ==
LOC: ER 21:06 → ED HOLD 08-17 00:55 → PCU 3S 08-17 01:31
PROVIDERS: ADMIT Internal Medicine; ATTEND Hospitalist
PROC: B32T1ZZ Computerized Tomography (CT Scan) of Left Pulmonary Artery using Low Osmolar Contrast (ICD-10-PCS; principal; 2018-08-16)
PROC: B3201ZZ Computerized Tomography (CT Scan) of Thoracic Aorta using Low Osmolar Contrast (ICD-10-PCS; 2018-08-16)
PROC: B32S1ZZ Computerized Tomography (CT Scan) of Right Pulmonary Artery using Low Osmolar Contrast (ICD-10-PCS; 2018-08-16)
DX: A41.9 Sepsis, unspecified organism (principal); I26.99 Other pulmonary embolism without acute cor pulmonale; J18.9 Pneumonia, unspecified organism; J44.0 Chronic obstructive pulmonary disease with (acute) lower respiratory infection; J44.1 Chronic obstructive pulmonary disease with (acute) exacerbation; I82.402 Acute embolism and thrombosis of unspecified deep veins of left lower extremity; E03.9 Hypothyroidism, unspecified; I10 Essential (primary) hypertension; I48.91 Unspecified atrial fibrillation; R34 Anuria and oliguria; D64.9 Anemia, unspecified; Z88.2 Allergy status to sulfonamides; Z88.6 Allergy status to analgesic agent; Z88.8 Allergy status to other drugs, medicaments and biological substances; Z79.899 Other long term (current) drug therapy; Z79.890 Hormone replacement therapy; Z87.891 Personal history of nicotine dependence; Z87.01 Personal history of pneumonia (recurrent); Z80.0 Family history of malignant neoplasm of digestive organs
CPT/HCPCS: 36415; 71046; 71275; 74176; 80048; 80053; 80202; 83605; 83735; 83880; 84100; 84145; 84439; 84443; 84480; 84484; 85025; 85610; 85730; 87040; 87070; 93005; 93306; 94640; 94760; 96361; 96365; 96372; 96375; 99285; G0378; J0692; J1170; J1650; J1956; J2060; J2405; J2920; J2930; J3370; J3490; J7626; Q9967

== ENCOUNTER 2019-01-10 23:43 | Emergency (ER) | payer MEDICARE ==
[~2019-01-10] VITALS: Ht 188 cm; Wt 104.4 kg
[~2019-01-10 23:43] MED LIST: APIX5TAB3 PO; BENA40TA73 PO; BUDE10.2 INH; ENOX100D5 SUBCUT; FURO-150 PO; LEVO150T PO; LIOT25TA6 PO; LORA0.5T PO; METO25TA6 PO; MONT10TA21 PO; RABE20TA28 PO; TIOT4MIS5; TRAM50TA2 PO
[2019-01-11] MEDS ORDERED: methylPREDNISolone sod succ 125mg/2ml vial IV ONE (00:15)
[2019-01-11] MEDS ORDERED: ipratropium/albuterol 3ml nebule NEB ONE (00:15)
[2019-01-11] MEDS ORDERED: normal saline 1000ml 1,000 ML IV ONE (00:15)
[2019-01-11] MEDS ORDERED: ketorolac trometh. 30mg/ml inj. IV ONE (00:15)
[2019-01-11] MEDS ORDERED: LIDOcaine Viscous 15ml cup MM ONE (00:15)
[2019-01-11 00:21] LABS: BASOPHILS # (AUTO) 0.1 X10'3 (0-0.2); BASOPHILS % (AUTO) 1.1 % (0-1); EOSINOPHILS # (AUTO) 0.1 X10'3 (0-0.9); EOSINOPHILS % (AUTO) 1.1 % (0-6); HEMATOCRIT 43.3 % (42.0-52.0); HEMOGLOBIN 14.5 g/dl (14.0-17.9); LYMPHOCYTES # (AUTO) 3.3 X10'3 (1.1-4.8); LYMPHOCYTES % (AUTO) 32.4 % (21-51); MEAN CORPUSCULAR HEMOGLOBIN 31.2 PG (27.0-31.0); MEAN CORPUSCULAR HGB CONC 33.5 g/dL (33.0-36.5); MEAN CORPUSCULAR VOLUME 93.1 FL (78-98); MEAN PLATELET VOLUME 7.1 FL (7.4-10.4); MONOCYTES # (AUTO) 0.7 X10'3 (0-0.9); MONOCYTES % (AUTO) 7.2 % (2-12); NEUTROPHILS # (AUTO) 5.9 X10'3 (1.8-7.7); NEUTROPHILS % (AUTO) 58.2 % (42-75); PLATELET COUNT 293 X10'3 (140-440); RED BLOOD COUNT 4.65 X10'6 (4.70-6.10); RED CELL DISTRIBUTION WIDTH 14.4 % (11.5-14.5); WHITE BLOOD COUNT 10.1 X10'3 (4.5-11.0)
[2019-01-11 00:50] LABS: PARTIAL THROMBOPLASTIN TIME 31 SECONDS (22-32)
[2019-01-11 01:05] LABS: ALANINE AMINOTRANSFERASE 24 U/L (12-78); ALBUMIN 3.4 G/DL (3.4-5.0); ALKALINE PHOSPHATASE 94 IU/L (46-116); ANION GAP 6 (8-16); ASPARTATE AMINO TRANSFERASE 14 U/L (10-37); BILIRUBIN,TOTAL 0.2 MG/DL (0.1-1.0); BLOOD UREA NITROGEN 15 MG/DL (7-18); BUN/CREATININE RATIO 14.2 (5.4-32.0); CALCIUM 8.8 MG/DL (8.5-10.1); CHLORIDE 106 MMOL/L (99-107); CREATININE 1.06 MG/DL (0.60-1.10); GLUCOSE 94 MG/DL (70-104); POTASSIUM 3.8 MMOL/L (3.5-5.1); SODIUM 139 MMOL/L (135-145); TOTAL CARBON DIOXIDE 26.9 MMOL/L (24-32); TOTAL PROTEIN 6.8 G/DL (6.4-8.2); eGFR 69 ML/MIN
[2019-01-11] MEDS ORDERED: LIDO20SO16 PO (01:22)
[2019-01-11 01:35] VITALS: BP 145/93
== END 2019-01-11 01:37 | disposition home or self-care (01) ==
LOC: ER 23:43
DX: J44.1 Chronic obstructive pulmonary disease with (acute) exacerbation (principal); B08.5 Enteroviral vesicular pharyngitis; Z86.718 Personal history of other venous thrombosis and embolism; Z88.8 Allergy status to other drugs, medicaments and biological substances; Z88.5 Allergy status to narcotic agent; Z88.2 Allergy status to sulfonamides; Z79.899 Other long term (current) drug therapy
CPT/HCPCS: 36415; 71045; 80053; 84484; 85025; 85610; 85730; 93005; 94640; 94760; 96374; 96375; 99284; J1885; J2930; J7030

== ENCOUNTER 2019-01-21 22:45 | Inpatient (IN) | payer MEDICARE | END 2019-01-27 15:08 | disposition home or self-care (01) | LOC: SUR 3N 01-25 23:36 → ER 22:45 → SUR 3N 01-24 12:12 → PCU 3S 01-22 14:55 | PROC: 0FT40ZZ Resection of Gallbladder, Open Approach (ICD-10-PCS; principal; 2019-01-23 19:56) | DX: A41.9 Sepsis, unspecified organism (principal); I27.82 Chronic pulmonary embolism; K81.0 Acute cholecystitis; N17.9 Acute kidney failure, unspecified; M94.0 Chondrocostal junction syndrome [Tietze]; L13.0 Dermatitis herpetiformis; N18.9 Chronic kidney disease, unspecified ==

== ENCOUNTER 2020-04-04 11:02 | Emergency (ER) | payer MEDICARE ==
[~2020-04-04] VITALS: Ht 188 cm; Wt 112.7 kg
[~2020-04-04 11:02] MED LIST changes: +ALBU18HF2 INH; -ENOX100D5 SUBCUT; +LEVO500T89 PO; -LORA0.5T PO; +METR500T PO; -TIOT4MIS5; +TIOT4MIS5 INH
[2020-04-04] MEDS ORDERED: acetaminophen 325mg tablet PO ONE (11:15)
[2020-04-04 12:29] LABS: BASOPHILS # (AUTO) 0.1 X10'3 (0-0.2); BASOPHILS % (AUTO) 0.5 % (0-1); EOSINOPHILS % (AUTO) 0.1 % (0-6); HEMATOCRIT 45.3 % (42.0-52.0); HEMOGLOBIN 15.2 g/dl (14.0-17.9); LYMPHOCYTES # (AUTO) 2.9 X10'3 (1.1-4.8); LYMPHOCYTES % (AUTO) 18.3 % (21-51); MEAN CORPUSCULAR HEMOGLOBIN 32.2 PG (27.0-31.0); MEAN CORPUSCULAR HGB CONC 33.6 g/dL (33.0-36.5); MEAN CORPUSCULAR VOLUME 95.6 FL (78-98); MONOCYTES # (AUTO) 1.4 X10'3 (0-0.9); MONOCYTES % (AUTO) 8.9 % (2-12); NEUTROPHILS # (AUTO) 11.6 X10'3 (1.8-7.7); NEUTROPHILS % (AUTO) 72.2 % (42-75); PLATELET COUNT 242 X10'3 (140-440); RED BLOOD COUNT 4.74 X10'6 (4.70-6.10); RED CELL DISTRIBUTION WIDTH 13.9 % (11.5-14.5)
[2020-04-04 12:37] LABS: ALANINE AMINOTRANSFERASE 21 U/L (12-78); ALBUMIN 3.6 G/DL (3.4-5.0); ALBUMIN/GLOBULIN RATIO 0.9 (1.1-1.5); ALKALINE PHOSPHATASE 68 IU/L (46-116); ANION GAP 9 (8-16); ASPARTATE AMINO TRANSFERASE 8 U/L (10-37); BILIRUBIN,TOTAL 1.4 MG/DL (0.1-1.0); BLOOD UREA NITROGEN 13 MG/DL (7-18); BUN/CREATININE RATIO 9.6 (5.4-32.0); CALCIUM 8.4 MG/DL (8.5-10.1); CHLORIDE 102 MMOL/L (99-107); CREATININE 1.36 MG/DL (0.60-1.10); GLUCOSE 100 MG/DL (70-104); POTASSIUM 4.1 MMOL/L (3.5-5.1); SODIUM 136 MMOL/L (135-145); TOTAL PROTEIN 7.6 G/DL (6.4-8.2); eGFR 52 ML/MIN
[2020-04-04 13:37] LABS: CLARITY,URINE CLEAR (Clear); COLOR,URINE YELLOW (Yellow); GLUCOSE, URINE NEGATIVE (Neg); KETONES,URINE 15 mg/dl (Neg); LEUKOCYTE ESTERASE ,URINE NEGATIVE (Neg); NITRITES, URINE NEGATIVE (Neg); OCCULT BLOOD,URINE SMALL (Neg); PH,URINE 7.5 (4.8-8.0); PROTEIN,URINE TRACE mg/dl (Neg); UROBILINOGEN,URINE 0.2 E.U/dL (0.2-1.0)
[2020-04-04 13:43] LABS: UA COLLECTION TYPE NON-SPECIFIED
[2020-04-04 13:49] LABS: BACTERIA,URINE FEW /HPF (Neg); RBC,URINE 50-100 /HPF (0-2); SQUAMOUS EPITHELIAL CELL,UR FEW /LPF (FEW); WBC,URINE 0-4 /HPF (0-4)
[2020-04-04] MEDS ORDERED: DOXYCYCLINE 100MG CAPSULE PO STA (14:07)
[2020-04-04] MEDS ORDERED: predniSONE 20 mg tablet PO ONE (14:10)
[2020-04-04] MEDS ORDERED: PRED50TA PO (14:11)
[2020-04-04] MEDS ORDERED: DOXY100C76 PO (14:11)
[2020-04-04 14:34] VITALS: BP 157/98
== END 2020-04-04 14:39 | disposition home or self-care (01) ==
LOC: ER 11:03
DX: J44.1 Chronic obstructive pulmonary disease with (acute) exacerbation (principal); R60.0 Localized edema; R50.9 Fever, unspecified; R05 Cough; Z86.718 Personal history of other venous thrombosis and embolism; Z90.49 Acquired absence of other specified parts of digestive tract; Z56.0 Unemployment, unspecified; Z91.09 Other allergy status, other than to drugs and biological substances; Z88.5 Allergy status to narcotic agent; Z88.2 Allergy status to sulfonamides; Z79.2 Long term (current) use of antibiotics; Z79.899 Other long term (current) drug therapy
CPT/HCPCS: 36415; 71045; 80053; 81001; 83880; 84443; 84484; 85025; 87635; 93005; 93971; 99285; C9803; J7512

== ENCOUNTER 2021-11-17 13:22 | Inpatient (IN) | payer MEDICARE ==
[~2021-11-17] VITALS: Ht 185.4 cm; Wt 100.0 kg
[~2021-11-17 13:22] MED LIST changes: -LEVO500T89 PO; +LEVO500T90 PO; +LOP25T PO; -METO25TA6 PO; +PRED50TA PO; -RABE20TA28 PO; +RABE20TA31 PO
--- NOTE | 2021-11-17 13:54 | NUR ---
Dr Jones made aware of afib rvr with HR 160's. Orders received (see EMAR).
[2021-11-17] MEDS ORDERED: diltiazem 5mg/ml 5ml inj. IV ONE (13:55)
[2021-11-17 14:03] LABS: BASOPHILS % (AUTO) 0.4 % (0-1); EOSINOPHILS % (AUTO) 0 % (0-6); HEMATOCRIT 46.3 % (42.0-52.0); HEMOGLOBIN 15.7 g/dl (14.0-17.9); LYMPHOCYTES # (AUTO) 1.1 X10'3 (1.1-4.8); MEAN CORPUSCULAR HEMOGLOBIN 32.9 PG (27.0-31.0); MEAN CORPUSCULAR VOLUME 96.9 FL (78-98); MEAN PLATELET VOLUME 7.2 FL (7.4-10.4); MONOCYTES # (AUTO) 0.4 X10'3 (0-0.9); MONOCYTES % (AUTO) 5.4 % (2-12); NEUTROPHILS # (AUTO) 6.6 X10'3 (1.8-7.7); NEUTROPHILS % (AUTO) 81.2 % (42-75); PLATELET COUNT 147 X10'3 (140-440); RED BLOOD COUNT 4.78 X10'6 (4.70-6.10); RED CELL DISTRIBUTION WIDTH 14.8 % (11.5-14.5); WHITE BLOOD COUNT 8.1 X10'3 (4.5-11.0)
[2021-11-17] MEDS ORDERED: normal saline 1000ml 1,000 ML IVB ONE (14:10)
[2021-11-17] MEDS: diltiazem-NS 100mg/100ml 100 ML IV SCH (14:18)
[2021-11-17 14:19] LABS: APTT 33 SECONDS (22-32)
[2021-11-17 14:21] LABS: ALANINE AMINOTRANSFERASE 45 U/L (12-78); ALBUMIN 3.3 G/DL (3.4-5.0); ALBUMIN/GLOBULIN RATIO 0.8 (1.1-1.5); ALKALINE PHOSPHATASE 58 IU/L (46-116); ANION GAP 10 (8-16); ASPARTATE AMINO TRANSFERASE 50 U/L (10-37); BILIRUBIN,TOTAL 0.3 MG/DL (0.1-1.0); BLOOD UREA NITROGEN 15 MG/DL (7-18); BUN/CREATININE RATIO 11.4 (5.4-32.0); CALCIUM 8.3 MG/DL (8.5-10.1); CHLORIDE 100 MMOL/L (99-107); CREATININE 1.32 MG/DL (0.60-1.10); GLUCOSE 88 MG/DL (70-104); POTASSIUM 4.6 MMOL/L (3.5-5.1); SODIUM 136 MMOL/L (135-145); TOTAL CARBON DIOXIDE 26.3 MMOL/L (24-32); TOTAL PROTEIN 7.2 G/DL (6.4-8.2); eGFR 53 ML/MIN
[2021-11-17] MEDS ORDERED: acetaminophen 325mg tablet PO STA (14:32)
[2021-11-17] MEDS ORDERED: metoprolol tartrate 1mg/ml inj IV ONE (15:25)
[2021-11-17] MEDS ORDERED: diltiazem-D5W 125mg/125ml 125 ML IV SCH ×2 (16:45→17:10)
[2021-11-17] MEDS ORDERED: OLANZapine 2.5MG tablet PO STA (16:56)
[2021-11-17] MEDS ORDERED: LORazepam 2 mg/ml vial IV ONE (17:00)
[2021-11-17] MEDS ORDERED: CefTRIAXone 2gm/D5W 50ml BAG 50 ML IV ONE (17:05)
[2021-11-17] MEDS ORDERED: ondansetron/PF 4mg/2ml inj IV PRN (17:10)
[2021-11-17] MEDS ORDERED: bisacodyl 10mg suppository rectal RC PRN (17:10)
[2021-11-17] MEDS ORDERED: HYDROcodone/acetaminophen 5mg/325mg tablet PO PRN (17:10)
[2021-11-17] MEDS ORDERED: magnesium 4gm in 100ml NS 100 ML IV PRN (17:10)
[2021-11-17] MEDS ORDERED: magnesium 2GM in 50ml NS 50 ML IV PRN (17:10)
[2021-11-17] MEDS ORDERED: HYDROcodone/acetaminophen 10/325mg tab PO PRN (17:10)
[2021-11-17] MEDS ORDERED: mag hydrox/Alum hydrox/simeth 30ml oral suspension PO PRN (17:10)
[2021-11-17] MEDS ORDERED: potassium CL 10mEq/100ml bag 100 ML IV PRN (17:10)
[2021-11-17] MEDS ORDERED: metoclopramide 5 mg/ml inj IV PRN (17:10)
[2021-11-17] MEDS ORDERED: potassium Cl 20 mEq SR tablet PO PRN ×2 (17:10)
[2021-11-17] MEDS ORDERED: magnesium Cl slow-release 64mg tablet PO PRN (17:10)
[2021-11-17] MEDS ORDERED: ondansetron 4mg rapidly disintigrating tab PO PRN (17:10)
[2021-11-17] MEDS ORDERED: magnesium hydroxide 30ml (MOM) UD suspension PO PRN (17:10)
[2021-11-17] MEDS ORDERED: iohexol 350MG/ML 100ml bottle IV ONE (17:33)
[2021-11-17 17:38] LABS: D-DIMER 0.75 MG/L FEU (0-0.50)
[2021-11-17] MEDS ORDERED: BENA40TA90 PO (17:39)
[2021-11-17] MEDS ORDERED: METO-395 PO (17:39)
[2021-11-17] MEDS ORDERED: LIOT25TA12 PO (17:39)
[2021-11-17] MEDS ORDERED: TIOT4MIS2 PO (17:39)
[2021-11-17] MEDS ORDERED: COLC0.6T72 PO (17:39)
[2021-11-17] MEDS: normal saline 1000ml 1,000 ML IV SCH (17:39)
[2021-11-17] MEDS ORDERED: ALBU18HF2 PO (17:39)
[2021-11-17] MEDS ORDERED: ROSU20TA2 PO (17:46)
[2021-11-17] MEDS ORDERED: MONT-40 PO (17:46)
[2021-11-17] MEDS ORDERED: AZIT250T83 PO (17:46)
[2021-11-17] MEDS ORDERED: IVER3TAB2 PO (17:46)
[2021-11-17] MEDS ORDERED: FURO-150 PO (17:46)
[2021-11-17] MEDS ORDERED: APIX5TAB3 PO (17:53)
--- NOTE | 2021-11-17 17:54 | NUR ---
to ct at this time.
[2021-11-17 17:55] LABS: C-REACTIVE PROTEIN 2.87 MG/DL (0.0-0.5); LACTATE DEHYDROGENASE 274 U/L (85-227)
[2021-11-17] MEDS ORDERED: PER5325T PO (17:55)
[2021-11-17] MEDS ORDERED: TEMA15CA PO (17:55)
--- NOTE | 2021-11-17 19:27 | NUR ---
Patient 3 hr troponin is 78. MD notified. No new orders at this time
[2021-11-17] MEDS ORDERED: enoxaparin 40mg/0.4ml syringe SQ SCH (20:00)
[2021-11-17] MEDS: K and/or MAG REPLACEMENT MC SCH (20:00)
[2021-11-17] MEDS: temazepam 15mg capsule PO PRN (22:59)
[2021-11-17 23:00] VITALS: BP 148/86
[2021-11-17] MEDS: acetaminophen 325mg tablet PO PRN (23:00)
[2021-11-17] MEDS: apixaban 5mg tablet PO SCH (23:00)
[2021-11-17] MEDS: LORazepam 2 mg/ml vial IV PRN (23:00)
[2021-11-18 04:52] VITALS: BP 133/70
[2021-11-18] MEDS: acetaminophen 325mg tablet PO PRN ×2 (05:08→19:46)
[2021-11-18 06:00] VITALS: BP 140/71
[2021-11-18] MEDS: K and/or MAG REPLACEMENT MC SCH ×2 (07:27→19:15)
[2021-11-18] MEDS: levoTHYROXINE 75mcg tablet PO SCH (08:40)
[2021-11-18] MEDS: montelukast 10mg tablet PO SCH (08:41)
[2021-11-18] MEDS: apixaban 5mg tablet PO SCH ×2 (08:42→19:38)
[2021-11-18] MEDS: CefTRIAXone/D5W-Rocephin 1gm 50 ML IV SCH (08:42)
[2021-11-18] MEDS: lisinopril 20mg tablet PO SCH (08:43)
[2021-11-18] MEDS: metoprolol succinate 25mg (24-HOUR) SR. Tablet PO SCH (08:44)
[2021-11-18] MEDS: liothyronine sod 5mcg tablet PO SCH (08:50)
[2021-11-18 09:08] LABS: BASOPHILS % (AUTO) 0.1 % (0-1); EOSINOPHILS % (AUTO) 0 % (0-6); HEMATOCRIT 45.2 % (42.0-52.0); LYMPHOCYTES # (AUTO) 3.2 X10'3 (1.1-4.8); LYMPHOCYTES % (AUTO) 17.9 % (21-51); MEAN CORPUSCULAR HEMOGLOBIN 32.5 PG (27.0-31.0); MEAN CORPUSCULAR HGB CONC 33.1 g/dL (33.0-36.5); MEAN CORPUSCULAR VOLUME 98.1 FL (78-98); MEAN PLATELET VOLUME 7.4 FL (7.4-10.4); MONOCYTES % (AUTO) 5.7 % (2-12); NEUTROPHILS # (AUTO) 13.5 X10'3 (1.8-7.7); NEUTROPHILS % (AUTO) 76.3 % (42-75); PLATELET COUNT 133 X10'3 (140-440); RED CELL DISTRIBUTION WIDTH 14.8 % (11.5-14.5); WHITE BLOOD COUNT 17.6 X10'3 (4.5-11.0)
[2021-11-18] MEDS: VANCOMYCIN 1GM/200ML IVPB 200 ML IV SCH ×2 (09:14→21:00)
[2021-11-18] MEDS: diltiazem-NS 100mg/100ml 100 ML IV SCH (09:29)
[2021-11-18 11:00] VITALS: BP 129/62
[2021-11-18 11:20] LABS: ALANINE AMINOTRANSFERASE 50 U/L (12-78); ALBUMIN 2.9 G/DL (3.4-5.0); ALBUMIN/GLOBULIN RATIO 0.9 (1.1-1.5); ALKALINE PHOSPHATASE 44 IU/L (46-116); ANION GAP 15 (8-16); ASPARTATE AMINO TRANSFERASE 66 U/L (10-37); BILIRUBIN,TOTAL 0.4 MG/DL (0.1-1.0); BLOOD UREA NITROGEN 17 MG/DL (7-18); BUN/CREATININE RATIO 13.4 (5.4-32.0); CALCIUM 7.6 MG/DL (8.5-10.1); CHLORIDE 102 MMOL/L (99-107); CHOL/HDL RATIO 2.2 (0.00-4.99); CHOLESTEROL 73 MG/DL (0-200); CREATININE 1.27 MG/DL (0.60-1.10); GLUCOSE 88 MG/DL (70-104); HDL CHOLESTEROL 33 MG/DL (35-60); LDL CHOLESTEROL 29 MG/DL (50-100); MAGNESIUM 1.3 MG/DL (1.5-2.4); PHOSPHORUS 3.5 MG/DL (2.3-4.5); SODIUM 139 MMOL/L (135-145); TRIGLYCERIDES 68 MG/DL (20-135); eGFR 56 ML/MIN
[2021-11-18 11:24] LABS: LACTATE DEHYDROGENASE 313 U/L (85-227); POTASSIUM 4.9 MMOL/L (3.5-5.1)
[2021-11-18] MEDS: LORazepam 2 mg/ml vial IV PRN ×2 (13:04→20:17)
[2021-11-18 14:56] LABS: APTT 40 SECONDS (22-32); D-DIMER 1.58 MG/L FEU (0-0.50)
[2021-11-18 15:00] VITALS: BP 140/73
[2021-11-18] MEDS: normal saline 1000ml 1,000 ML IV SCH (17:42)
--- NOTE | 2021-11-18 18:37 | NUR ---
Patient agitated, confused, restless and aggressive. Patient is pulling up lines appears restless. towel rolling machine operator notified about patient's behavior and urgent need sitter order. All safety measures maintained. Will continue to monitor
[2021-11-18 19:31] VITALS: BP 159/92
[2021-11-18] MEDS: diltiazem 30mg tablet PO SCH (19:38)
[2021-11-18 22:00] VITALS: BP 136/73
[2021-11-19] VITALS (7 sets, daily range): BP systolic 103–158; BP diastolic 61–85
[2021-11-19] MEDS: LORazepam 2 mg/ml vial IV PRN ×3 (00:01→10:02)
--- NOTE | 2021-11-19 02:14 | NUR ---
Patient is wheezing. Page sent to respirator for PRN breathing Tx. Will continue to monitor
[2021-11-19] MEDS: normal saline 1000ml 1,000 ML IV SCH ×3 (02:16→20:35)
[2021-11-19] MEDS: ALBUTEROL INHALER 1 PUFF/90 MCG INHALER IH PRN (02:28)
[2021-11-19] MEDS: diltiazem 30mg tablet PO SCH ×4 (02:47→20:30)
[2021-11-19] MEDS ORDERED: acetaminophen 120MG suppository, rectal RC PRN (05:00)
--- NOTE | 2021-11-19 05:08 | NUR ---
At the beginning of the shift HEATHER Ingram advised me the patient was confused, restless and pulling on lines. I had a PCT sit with him and eventually mittens had to be placed on his hands for safety. I was just called into the room, as the patient had become aggressive with the Tech. At this point he had to be restrained with BUE soft restraints. An order was obtained with Dr. Grossman for the sitter and restraints.
--- NOTE | 2021-11-19 05:08 | NUR ---
Patient became combative. Stat staff emergency was called because sitter could prevent patient from pulling and getting out of bed. notified. Restraint order obtained. All safety maintained. Will continue monitor.
[2021-11-19] MEDS: diltiazem-NS 100mg/100ml 100 ML IV SCH (05:09)
[2021-11-19 07:32] LABS: BASOPHILS % (AUTO) 0.1 % (0-1); EOSINOPHILS % (AUTO) 0 % (0-6); HEMATOCRIT 43.7 % (42.0-52.0); HEMOGLOBIN 14.6 g/dl (14.0-17.9); LYMPHOCYTES # (AUTO) 1.8 X10'3 (1.1-4.8); LYMPHOCYTES % (AUTO) 11.3 % (21-51); MEAN CORPUSCULAR HEMOGLOBIN 32.5 PG (27.0-31.0); MEAN CORPUSCULAR HGB CONC 33.3 g/dL (33.0-36.5); MEAN CORPUSCULAR VOLUME 97.5 FL (78-98); MONOCYTES # (AUTO) 0.6 X10'3 (0-0.9); NEUTROPHILS # (AUTO) 13.3 X10'3 (1.8-7.7); NEUTROPHILS % (AUTO) 84.6 % (42-75); PLATELET COUNT 137 X10'3 (140-440); RED BLOOD COUNT 4.48 X10'6 (4.70-6.10); RED CELL DISTRIBUTION WIDTH 14.8 % (11.5-14.5); WHITE BLOOD COUNT 15.8 X10'3 (4.5-11.0)
[2021-11-19 07:37] LABS: APTT 42 SECONDS (22-32); D-DIMER 0.85 MG/L FEU (0-0.50)
[2021-11-19 07:48] LABS: ALANINE AMINOTRANSFERASE 50 U/L (12-78); ALBUMIN 2.4 G/DL (3.4-5.0); ALBUMIN/GLOBULIN RATIO 0.8 (1.1-1.5); ALKALINE PHOSPHATASE 43 IU/L (46-116); ANION GAP 12 (8-16); ASPARTATE AMINO TRANSFERASE 72 U/L (10-37); BILIRUBIN,TOTAL 0.5 MG/DL (0.1-1.0); BLOOD UREA NITROGEN 24 MG/DL (7-18); BUN/CREATININE RATIO 22.9 (5.4-32.0); CALCIUM 7.6 MG/DL (8.5-10.1); CHLORIDE 104 MMOL/L (99-107); CREATININE 1.05 MG/DL (0.60-1.10); GLUCOSE 95 MG/DL (70-104); LACTATE DEHYDROGENASE 293 U/L (85-227); MAGNESIUM 1.7 MG/DL (1.5-2.4); PHOSPHORUS 2.4 MG/DL (2.3-4.5); POTASSIUM 4.6 MMOL/L (3.5-5.1); SODIUM 138 MMOL/L (135-145); TOTAL PROTEIN 5.5 G/DL (6.4-8.2); eGFR 69 ML/MIN
[2021-11-19] MEDS: K and/or MAG REPLACEMENT MC SCH ×2 (08:00→20:00)
[2021-11-19] MEDS: CefTRIAXone/D5W-Rocephin 1gm 50 ML IV SCH (08:00)
[2021-11-19 08:04] LABS: C-REACTIVE PROTEIN 25.04 MG/DL (0.0-0.5)
[2021-11-19] MEDS: liothyronine sod 5mcg tablet PO SCH (10:03)
[2021-11-19] MEDS: metoprolol succinate 25mg (24-HOUR) SR. Tablet PO SCH (10:03)
[2021-11-19] MEDS: lisinopril 20mg tablet PO SCH (10:03)
[2021-11-19] MEDS: levoTHYROXINE 75mcg tablet PO SCH (10:03)
[2021-11-19] MEDS: montelukast 10mg tablet PO SCH (10:04)
[2021-11-19] MEDS: acetaminophen 325mg tablet PO PRN (10:04)
[2021-11-19] MEDS: apixaban 5mg tablet PO SCH ×2 (10:08→20:30)
[2021-11-19] MEDS: VANCOMYCIN 1GM/200ML IVPB 200 ML IV SCH ×2 (10:08→20:48)
--- NOTE | 2021-11-19 18:01 | NUR ---
PAGER ID: [phone] MESSAGE: Echo [id number]...RE: Michael Luna [id number] Angel from tele just notified us that patient has converted back to Afib rate controlled in the 100's
--- NOTE | 2021-11-19 18:09 | NUR ---
PAGER ID: [phone] MESSAGE: Echo [id number] RE: Michael Luna [phone]: BP 136/72; HR 107-112
[2021-11-19] MEDS ORDERED: VANCOMYCIN LEVEL IV ONE (20:30)
[2021-11-20 02:00] VITALS: BP 153/80
[2021-11-20] MEDS: diltiazem 30mg tablet PO SCH ×4 (02:32→19:25)
[2021-11-20 06:28] VITALS: BP 157/84
--- NOTE | 2021-11-20 06:28 | NUR ---
Patient in room ORTHO 4018. I have received report from HEATHER CARPIO and had the opportunity to ask questions and assume patient care.
[2021-11-20 07:16] LABS: BASOPHILS % (AUTO) 0.1 % (0-1); EOSINOPHILS % (AUTO) 0 % (0-6); HEMATOCRIT 42.5 % (42.0-52.0); LYMPHOCYTES # (AUTO) 1.5 X10'3 (1.1-4.8); LYMPHOCYTES % (AUTO) 10.7 % (21-51); MEAN CORPUSCULAR HEMOGLOBIN 32.1 PG (27.0-31.0); MEAN CORPUSCULAR VOLUME 97.3 FL (78-98); MEAN PLATELET VOLUME 7.9 FL (7.4-10.4); MONOCYTES # (AUTO) 0.7 X10'3 (0-0.9); MONOCYTES % (AUTO) 5.3 % (2-12); NEUTROPHILS # (AUTO) 11.7 X10'3 (1.8-7.7); NEUTROPHILS % (AUTO) 83.9 % (42-75); PLATELET COUNT 155 X10'3 (140-440); RED BLOOD COUNT 4.37 X10'6 (4.70-6.10); RED CELL DISTRIBUTION WIDTH 14.5 % (11.5-14.5); WHITE BLOOD COUNT 13.9 X10'3 (4.5-11.0)
[2021-11-20] MEDS: CefTRIAXone/D5W-Rocephin 1gm 50 ML IV SCH (07:20)
[2021-11-20] MEDS: liothyronine sod 5mcg tablet PO SCH (07:21)
[2021-11-20] MEDS: montelukast 10mg tablet PO SCH (07:21)
[2021-11-20 07:22] LABS: APTT 36 SECONDS (22-32); D-DIMER 1.39 MG/L FEU (0-0.50)
[2021-11-20] MEDS: lisinopril 20mg tablet PO SCH (07:22)
[2021-11-20] MEDS: levoTHYROXINE 75mcg tablet PO SCH (07:22)
[2021-11-20] MEDS: metoprolol succinate 25mg (24-HOUR) SR. Tablet PO SCH (07:22)
[2021-11-20] MEDS: apixaban 5mg tablet PO SCH ×2 (07:22→19:25)
[2021-11-20] MEDS: normal saline 1000ml 1,000 ML IV SCH (07:23)
[2021-11-20 07:30] LABS: ALANINE AMINOTRANSFERASE 53 U/L (12-78); ALBUMIN 2.1 G/DL (3.4-5.0); ALBUMIN/GLOBULIN RATIO 0.7 (1.1-1.5); ALKALINE PHOSPHATASE 47 IU/L (46-116); ANION GAP 8 (8-16); ASPARTATE AMINO TRANSFERASE 68 U/L (10-37); BILIRUBIN,TOTAL 0.5 MG/DL (0.1-1.0); BLOOD UREA NITROGEN 22 MG/DL (7-18); C-REACTIVE PROTEIN 20.93 MG/DL (0.0-0.5); CALCIUM 7.5 MG/DL (8.5-10.1); CHLORIDE 106 MMOL/L (99-107); GLUCOSE 93 MG/DL (70-104); LACTATE DEHYDROGENASE 249 U/L (85-227); MAGNESIUM 1.6 MG/DL (1.5-2.4); POTASSIUM 4.4 MMOL/L (3.5-5.1); SODIUM 141 MMOL/L (135-145); TOTAL CARBON DIOXIDE 26.7 MMOL/L (24-32); TOTAL PROTEIN 5.3 G/DL (6.4-8.2); eGFR 73 ML/MIN
[2021-11-20] MEDS: K and/or MAG REPLACEMENT MC SCH ×2 (07:48→20:00)
[2021-11-20] MEDS ORDERED: VANCOmycin 1250MG/NS 250ml Bag 250 ML IV SCH (08:00)
[2021-11-20] MEDS: piperacillin/tazo 3.375gm/50ml 50 ML IV SCH ×2 (09:41→16:32)
[2021-11-20] MEDS ORDERED: REMDESIVIR INJ 200 MG in normal saline 100ml IV soln 100 ML IV ONE (10:20)
[2021-11-20 10:30] VITALS: BP 117/97
[2021-11-20 10:41] LABS: URINE AMPHETAMINE SCREEN NEGATIVE (Neg); URINE BARBITUATE SCREEN NEGATIVE (Neg); URINE BENZODIAZEPINES SCREEN NEGATIVE (Neg); URINE CANNABINOID SCREEN NEGATIVE (Neg); URINE COCAINE SCREEN NEGATIVE (Neg); URINE METHADONE SCREEN NEGATIVE (Neg); URINE OPIATE SCREEN NEGATIVE (Neg); URINE PHENCYCLIDINE SCREEN NEGATIVE (Neg)
[2021-11-20 10:48] LABS: CLARITY,URINE CLEAR (Clear); COLOR,URINE YELLOW (Yellow); GLUCOSE, URINE NEGATIVE (Neg); KETONES,URINE 15 mg/dl (Neg); LEUKOCYTE ESTERASE ,URINE NEGATIVE (Neg); NITRITES, URINE NEGATIVE (Neg); OCCULT BLOOD,URINE SMALL (Neg); PH,URINE 5.5 (4.8-8.0); PROTEIN,URINE NEGATIVE (Neg); UROBILINOGEN,URINE 0.2 E.U/dL (0.2-1.0)
[2021-11-20 10:51] LABS: UA COLLECTION TYPE CLN CATCH MIDSTREAM
[2021-11-20] MEDS: dexamethasone 4mg/ml inj IV SCH (10:57)
[2021-11-20 10:58] LABS: BACTERIA,URINE NONE SEEN /HPF (Neg); MUCUS STRANDS NONE SEEN /LPF (Neg); RBC,URINE 0-2 /HPF (0-2); SQUAMOUS EPITHELIAL CELL,UR FEW /LPF (FEW); WBC,URINE NONE SEEN /HPF (0-4)
[2021-11-20] MEDS: acetaminophen 325mg tablet PO PRN (10:58)
--- NOTE | 2021-11-20 10:58 | NUR ---
Removed patients restraints, appropriate, pleasant and following commands.
[2021-11-20] MEDS: ALBUTEROL INHALER 1 PUFF/90 MCG INHALER IH PRN (12:49)
--- NOTE | 2021-11-20 15:57 | NUR ---
Spoke to about bringing in patients own inhalers, agreeable to bringing them in.
--- NOTE | 2021-11-20 17:35 | NUR ---
Patient has been appropriate and out of restraints for the majority of the day, however as of the last hour he is pulling his oxygen off and pulling his gown off also, sp02 with 02 off was in the 80s. Restraints placed back on to keep the oxygen on.
[2021-11-20 18:00] VITALS: BP 115/76
--- NOTE | 2021-11-20 18:29 | NUR ---
Problems reprioritized. Patient report given, questions answered & plan of care reviewed with HEATHER Kirkland.
[2021-11-20] MEDS ORDERED: budesonide 0.5mg/2ml UD nebule IH SCH (20:00)
[2021-11-20] MEDS ORDERED: ipratropium/albuterol 3ml nebule IH SCH (20:00)
[2021-11-20] MEDS: LORazepam 2 mg/ml vial IV PRN (21:36)
[2021-11-20 22:00] VITALS: BP 160/98
[2021-11-21] MEDS: diltiazem 30mg tablet PO SCH ×4 (01:40→19:35)
[2021-11-21] MEDS: piperacillin/tazo 3.375gm/50ml 50 ML IV SCH ×3 (01:40→15:34)
[2021-11-21 02:00] VITALS: BP 150/96
--- NOTE | 2021-11-21 06:17 | NUR ---
Received report from HEATHER Kirkland
[2021-11-21] MEDS: LORazepam 2 mg/ml vial IV PRN ×2 (06:28→15:27)
[2021-11-21] MEDS: levoTHYROXINE 75mcg tablet PO SCH (07:00)
--- NOTE | 2021-11-21 07:38 | NUR ---
Went into patients room to check on him after getting shift change report, patient visably confused talking very inappropriately about this RN. Attempted to get patients legs back into bed and when i did so he attempted to kick me, broke out of soft wrist restraints. Called patients he was talking to her making very little comprehendible sense. She stated he has had issues with short term memory lately and sometimes it can take him awhile to clear up also stated that he has tried ativan before and that it makes him more paranoid. Patient will not allow for restraints to be placed back on, sitter present at bedside. Ativan was given, he is calm now for the most part at this time.
[2021-11-21] MEDS: REMDESIVIR INJ 100 MG in normal saline 100ml IV soln 100 ML IV SCH (07:46)
[2021-11-21] MEDS: metoprolol succinate 25mg (24-HOUR) SR. Tablet PO SCH (08:00)
[2021-11-21] MEDS: dexamethasone 4mg/ml inj IV SCH (08:00)
[2021-11-21] MEDS: K and/or MAG REPLACEMENT MC SCH ×2 (08:00→19:34)
[2021-11-21] MEDS: lisinopril 20mg tablet PO SCH (08:00)
[2021-11-21] MEDS: montelukast 10mg tablet PO SCH (08:00)
[2021-11-21] MEDS: apixaban 5mg tablet PO SCH ×2 (08:00→19:35)
[2021-11-21] MEDS: liothyronine sod 5mcg tablet PO SCH (08:00)
[2021-11-21 09:51] VITALS: BP 183/110
[2021-11-21] MEDS: ALBUTEROL INHALER 1 PUFF/90 MCG INHALER IH PRN (09:52)
--- NOTE | 2021-11-21 10:14 | NUR ---
Mentation seems to be improving as the day goes on; pleasantly confused at this time getting a bed bath.
[2021-11-21] MEDS: SPIRIVA RESPIMAT PO SCH (10:56)
[2021-11-21 11:52] LABS: BASOPHILS % (AUTO) 0.1 % (0-1); EOSINOPHILS % (AUTO) 0 % (0-6); HEMATOCRIT 43.2 % (42.0-52.0); HEMOGLOBIN 14.4 g/dl (14.0-17.9); LYMPHOCYTES # (AUTO) 0.5 X10'3 (1.1-4.8); LYMPHOCYTES % (AUTO) 6.2 % (21-51); MEAN CORPUSCULAR HEMOGLOBIN 32.6 PG (27.0-31.0); MEAN CORPUSCULAR HGB CONC 33.3 g/dL (33.0-36.5); MEAN CORPUSCULAR VOLUME 97.8 FL (78-98); MEAN PLATELET VOLUME 8.2 FL (7.4-10.4); MONOCYTES # (AUTO) 0.6 X10'3 (0-0.9); MONOCYTES % (AUTO) 6.3 % (2-12); NEUTROPHILS # (AUTO) 7.7 X10'3 (1.8-7.7); NEUTROPHILS % (AUTO) 87.4 % (42-75); PLATELET COUNT 205 X10'3 (140-440); RED BLOOD COUNT 4.42 X10'6 (4.70-6.10); RED CELL DISTRIBUTION WIDTH 14.7 % (11.5-14.5); WHITE BLOOD COUNT 8.8 X10'3 (4.5-11.0)
[2021-11-21 12:05] LABS: D-DIMER 1.07 MG/L FEU (0-0.50)
[2021-11-21 12:07] LABS: ALANINE AMINOTRANSFERASE 65 U/L (12-78); ALBUMIN 2.4 G/DL (3.4-5.0); ALBUMIN/GLOBULIN RATIO 0.5 (1.1-1.5); ALKALINE PHOSPHATASE 46 IU/L (46-116); ANION GAP 12 (8-16); ASPARTATE AMINO TRANSFERASE 57 U/L (10-37); BILIRUBIN,TOTAL 0.4 MG/DL (0.1-1.0); BLOOD UREA NITROGEN 23 MG/DL (7-18); BUN/CREATININE RATIO 24.2 (5.4-32.0); C-REACTIVE PROTEIN 12.78 MG/DL (0.0-0.5); CALCIUM 8.6 MG/DL (8.5-10.1); CHLORIDE 106 MMOL/L (99-107); CREATININE 0.95 MG/DL (0.60-1.10); GLUCOSE 116 MG/DL (70-104); LACTATE DEHYDROGENASE 265 U/L (85-227); MAGNESIUM 1.7 MG/DL (1.5-2.4); PHOSPHORUS 2.6 MG/DL (2.3-4.5); POTASSIUM 3.9 MMOL/L (3.5-5.1); SODIUM 141 MMOL/L (135-145); TOTAL CARBON DIOXIDE 23.5 MMOL/L (24-32); TOTAL PROTEIN 6.8 G/DL (6.4-8.2); eGFR 78 ML/MIN
--- NOTE | 2021-11-21 12:08 | NUR ---
Initial: Pt admit DX COVID-19, bacterial sepsis, delirium/mild to moderate dementia, HTN, hypothyroidism, afib w/ RVR, and acute respiratory failure per EMR. Pt on 4L NC mostly 0% vs refusing all heart healthy meals past 3 days not meeting needs. RD paged MD regarding liberalizing to regular diet given poor PO trends this admit. Pt AOx1/confused up from AOx0 on admit w/ confusion at baseline previously in restraints though now restraints removed w/ sitter at bedside per EMR; doing better per MD note. Pt previously minimum assistance w/ meals while in restraints in addition to confusion likely impacting prior PO trends. Noted pt PO 50% breakfast this AM now independent w/ meals per EMR; magic cup BIDBD added to meals to assist meeting needs. LBM 3/3. Will monitor for further PO trends/acceptance this admit for further nutrition intervention needs. Rec: 1. Liberalize to regular/no gluten diet given poor PO intake and hx Celiacs; consider NURSE INFORMATICS EDUCATOR BSS if concerns for PO tolerance w/ ALOC 2. Magic cup BIDBD for additional kcals/protein w/ fluctuating PO acceptance 3. Monitor further PO trends for ONS needs 4. IF prior PO trends persist; consider EN via NG to optimize nutrition status 5. routine bowel care 6. scaled wt this admit; subsequent weekly wts Addendum: 11/21/21 at [address] Amended: Links added.
[2021-11-21] MEDS ORDERED: albuterol 2.5 MG/3 ML nebule NEB SCH (14:00)
[2021-11-21] MEDS ORDERED: ipratropium 0.5 MG/2.5ML nebule IH SCH (14:00)
[2021-11-21 15:21] VITALS: BP 169/90
--- NOTE | 2021-11-21 15:49 | NUR ---
Patient getting increasingly agitated, still able to calm somewhat. Restraints were re applied and ativan was given.
--- NOTE | 2021-11-21 16:22 | NUR ---
PAGER ID: [phone] MESSAGE: [phone] Jeremy, patient is very agitated again, attempting to get out of bed, not following directions and broke out of his wrist restraints again. Can i get something IM for him please? [email or web address] [id number]
[2021-11-21] MEDS ORDERED: haloperidol lactate 5mg/ml inj IM ONE (16:25)
--- NOTE | 2021-11-21 16:33 | NUR ---
Haldol given, patient is not directable and non compliant. Not safe whatsoever is not following commands and has broken out of his wrist restraints multiple times and is posing a safety risk to staff.
--- NOTE | 2021-11-21 17:00 | NUR ---
PAGER ID: [phone] MESSAGE: [phone] Jeremy yary was asking if you could call her. Name: Yary Number: [phone]. Also did you see my page about [phone]? thanks! [email or web address] [phone]
--- NOTE | 2021-11-21 17:50 | NUR ---
Patient was aspirating on his dinner, cleared airway with yaunker. Multiple pieces of turkey present in his mouth and throat. 02 after event was 94% on 3 liters of 02. Dinner tray was removed.
[2021-11-21 18:00] VITALS: BP 175/89
[2021-11-21] MEDS ORDERED: mirtazapine 15mg tablet PO SCH (18:00)
--- NOTE | 2021-11-21 18:25 | NUR ---
Gave report to HEATHER Elias
[2021-11-21] MEDS ORDERED: VANCOMYCIN LEVEL IV ONE (19:30)
[2021-11-21] MEDS ORDERED: budesonide 0.5mg/2ml UD nebule IH SCH (20:00)
[2021-11-21] MEDS: SYMBICORT PO SCH (20:00)
[2021-11-21 22:00] VITALS: BP 161/94
[2021-11-22] VITALS (7 sets, daily range): BP systolic 135–179; BP diastolic 73–96
[2021-11-22] MEDS: piperacillin/tazo 3.375gm/50ml 50 ML IV SCH ×4 (00:05→23:40)
[2021-11-22] MEDS: diltiazem 30mg tablet PO SCH ×4 (01:24→19:28)
--- NOTE | 2021-11-22 06:36 | NUR ---
Problems reprioritized. Patient report given, questions answered & plan of care reviewed with Justice ROMERO.
[2021-11-22 07:13] LABS: BASOPHILS % (AUTO) 0 % (0-1); EOSINOPHILS % (AUTO) 0 % (0-6); HEMATOCRIT 44.7 % (42.0-52.0); LYMPHOCYTES % (AUTO) 11.1 % (21-51); MEAN CORPUSCULAR HEMOGLOBIN 32.4 PG (27.0-31.0); MEAN CORPUSCULAR HGB CONC 33.6 g/dL (33.0-36.5); MEAN CORPUSCULAR VOLUME 96.5 FL (78-98); MONOCYTES # (AUTO) 0.6 X10'3 (0-0.9); MONOCYTES % (AUTO) 6.1 % (2-12); NEUTROPHILS # (AUTO) 7.8 X10'3 (1.8-7.7); NEUTROPHILS % (AUTO) 82.8 % (42-75); PLATELET COUNT 231 X10'3 (140-440); RED BLOOD COUNT 4.63 X10'6 (4.70-6.10); RED CELL DISTRIBUTION WIDTH 14.6 % (11.5-14.5); WHITE BLOOD COUNT 9.4 X10'3 (4.5-11.0)
[2021-11-22 07:19] LABS: D-DIMER 1.08 MG/L FEU (0-0.50)
[2021-11-22 07:45] LABS: ALANINE AMINOTRANSFERASE 66 U/L (12-78); ALBUMIN 2.4 G/DL (3.4-5.0); ALBUMIN/GLOBULIN RATIO 0.5 (1.1-1.5); ALKALINE PHOSPHATASE 44 IU/L (46-116); ANION GAP 12 (8-16); ASPARTATE AMINO TRANSFERASE 46 U/L (10-37); BILIRUBIN,TOTAL 0.5 MG/DL (0.1-1.0); BLOOD UREA NITROGEN 20 MG/DL (7-18); BUN/CREATININE RATIO 20.4 (5.4-32.0); C-REACTIVE PROTEIN 7.79 MG/DL (0.0-0.5); CALCIUM 8.7 MG/DL (8.5-10.1); CHLORIDE 106 MMOL/L (99-107); CREATININE 0.98 MG/DL (0.60-1.10); GLUCOSE 120 MG/DL (70-104); LACTATE DEHYDROGENASE 281 U/L (85-227); PHOSPHORUS 4.3 MG/DL (2.3-4.5); POTASSIUM 3.9 MMOL/L (3.5-5.1); SODIUM 142 MMOL/L (135-145); TOTAL CARBON DIOXIDE 23.6 MMOL/L (24-32); TOTAL PROTEIN 6.8 G/DL (6.4-8.2); eGFR 75 ML/MIN
[2021-11-22] MEDS: REMDESIVIR INJ 100 MG in normal saline 100ml IV soln 100 ML IV SCH (07:55)
[2021-11-22] MEDS: acetaminophen 325mg tablet PO PRN ×2 (07:56→14:06)
[2021-11-22] MEDS: liothyronine sod 5mcg tablet PO SCH (07:56)
[2021-11-22] MEDS: metoprolol succinate 25mg (24-HOUR) SR. Tablet PO SCH (07:56)
[2021-11-22] MEDS: lisinopril 20mg tablet PO SCH (07:57)
[2021-11-22] MEDS: levoTHYROXINE 75mcg tablet PO SCH (07:57)
[2021-11-22] MEDS: dexamethasone 4mg/ml inj IV SCH (07:57)
[2021-11-22] MEDS: apixaban 5mg tablet PO SCH ×2 (07:57→19:27)
[2021-11-22] MEDS: montelukast 10mg tablet PO SCH (07:57)
[2021-11-22] MEDS: K and/or MAG REPLACEMENT MC SCH ×2 (07:58→19:25)
[2021-11-22] MEDS: SYMBICORT PO SCH ×3 (07:58→19:53)
[2021-11-22] MEDS: SPIRIVA RESPIMAT PO SCH ×2 (07:58→09:30)
[2021-11-22] MEDS ORDERED: mirtazapine 15mg tablet PO SCH (08:00)
[2021-11-22] MEDS ORDERED: benzocaine/menthol oral lozeng 1 EACH BOX MM PRN (16:50)
[2021-11-22] MEDS ORDERED: OLANZapine **IM** 10 mg inj. IM PRN (16:55)
[2021-11-22] MEDS: OLANZAPINE 5 MG TABLET PO SCH (17:39)
[2021-11-22] MEDS: temazepam 15mg capsule PO PRN (21:48)
[2021-11-23] MEDS: diltiazem 30mg tablet PO SCH ×4 (01:47→20:04)
[2021-11-23 02:00] VITALS: BP 143/83
--- NOTE | 2021-11-23 06:11 | NUR ---
Problems reprioritized. Patient report given, questions answered & plan of care reviewed with HEATHER Brennan.
[2021-11-23 06:46] VITALS: BP 156/78
--- NOTE | 2021-11-23 06:50 | NUR ---
Patient in room ORTHO 4018. I have received report from Yamileth ROMERO and had the opportunity to ask questions and assume patient care.
[2021-11-23] MEDS: metoprolol succinate 25mg (24-HOUR) SR. Tablet PO SCH (07:35)
[2021-11-23] MEDS: lisinopril 20mg tablet PO SCH (07:36)
[2021-11-23] MEDS: apixaban 5mg tablet PO SCH ×2 (07:37→20:04)
[2021-11-23] MEDS: OLANZAPINE 5 MG TABLET PO SCH ×2 (07:37→16:44)
[2021-11-23] MEDS: montelukast 10mg tablet PO SCH (07:37)
[2021-11-23] MEDS: liothyronine sod 5mcg tablet PO SCH (07:37)
[2021-11-23] MEDS: REMDESIVIR INJ 100 MG in normal saline 100ml IV soln 100 ML IV SCH (07:38)
[2021-11-23] MEDS: piperacillin/tazo 3.375gm/50ml 50 ML IV SCH ×2 (07:38→16:44)
[2021-11-23] MEDS: levoTHYROXINE 75mcg tablet PO SCH (07:38)
[2021-11-23] MEDS: dexamethasone 4mg/ml inj IV SCH (07:40)
[2021-11-23] MEDS: SYMBICORT PO SCH ×2 (07:52→20:26)
[2021-11-23] MEDS: SPIRIVA RESPIMAT PO SCH (07:53)
[2021-11-23] MEDS: K and/or MAG REPLACEMENT MC SCH ×2 (08:00→20:00)
[2021-11-23 10:00] VITALS: BP 128/60
[2021-11-23] MEDS: HYDROcodone/acetaminophen 5mg/325mg tablet PO PRN (12:34)
[2021-11-23 14:00] VITALS: BP 112/88
[2021-11-23] MEDS: acetaminophen 325mg tablet PO PRN (15:27)
[2021-11-23 17:28] LABS: D-DIMER 1.39 MG/L FEU (0-0.50)
[2021-11-23 18:00] VITALS: BP 151/83
[2021-11-23 18:22] LABS: C-REACTIVE PROTEIN 3.18 MG/DL (0.0-0.5)
--- NOTE | 2021-11-23 18:27 | NUR ---
Problems reprioritized. Patient report given, questions answered & plan of care reviewed with Verona ROMERO.
[2021-11-23] MEDS: temazepam 15mg capsule PO PRN (21:22)
[2021-11-23 22:00] VITALS: BP 139/78
[2021-11-24] MEDS: diltiazem 30mg tablet PO SCH ×3 (01:44→13:29)
[2021-11-24] MEDS: temazepam 15mg capsule PO PRN (01:44)
[2021-11-24 02:00] VITALS: BP 149/85
--- NOTE | 2021-11-24 06:27 | NUR ---
Problems reprioritized. Patient report given, questions answered & plan of care reviewed with LAUREANO ROMERO.
--- NOTE | 2021-11-24 06:29 | NUR ---
Received report from HEATHER Rhoades
[2021-11-24 06:30] VITALS: BP 150/85
[2021-11-24] MEDS ORDERED: levoTHYROXINE 125mcg tablet PO SCH (07:00)
[2021-11-24] MEDS: OLANZAPINE 5 MG TABLET PO SCH (07:03)
[2021-11-24] MEDS: REMDESIVIR INJ 100 MG in normal saline 100ml IV soln 100 ML IV SCH (07:03)
[2021-11-24] MEDS: dexamethasone 4mg/ml inj IV SCH (07:09)
[2021-11-24] MEDS: K and/or MAG REPLACEMENT MC SCH (08:00)
[2021-11-24] MEDS: piperacillin/tazo 3.375gm/50ml 50 ML IV SCH ×2 (08:30)
[2021-11-24] MEDS: apixaban 5mg tablet PO SCH (08:30)
[2021-11-24] MEDS: liothyronine sod 5mcg tablet PO SCH (08:30)
[2021-11-24] MEDS: montelukast 10mg tablet PO SCH (08:30)
[2021-11-24 08:31] VITALS: BP_SYST 150
[2021-11-24] MEDS: metoprolol succinate 25mg (24-HOUR) SR. Tablet PO SCH (08:31)
[2021-11-24] MEDS: lisinopril 20mg tablet PO SCH (08:31)
[2021-11-24] MEDS: SYMBICORT PO SCH (08:48)
[2021-11-24] MEDS: SPIRIVA RESPIMAT PO SCH (08:48)
--- NOTE | 2021-11-24 09:12 | NUR ---
Reassessment; Pt noted to have episode of aspiration 3/3, was placed on MM5 diet per REGULATORY LEADER. However, pt has had mostly 0% of meals and has reportedly been agitated. Pt did consume ~ 66% of last four meals but mostly refused prior to that. Feeder needed and restraints have been discontinues per EMR. Rec: 1. Liberalize to regular/no gluten diet given poor PO intake and hx Celiacs; MM5 per REGULATORY LEADER recs 2. Magic cup BIDBD for additional kcals/protein w/ fluctuating PO acceptance 3. Ensure Enlive TID; pending MD verification 4. IF prior PO trends persist; consider EN via NG to optimize nutrition status 5. routine bowel care 6. scaled wt this admit; subsequent weekly wts Addendum: 11/24/21 at [address] Amended: Links added.
[2021-11-24 09:36] LABS: BASOPHILS % (AUTO) 0.1 % (0-1); EOSINOPHILS % (AUTO) 0 % (0-6); HEMATOCRIT 45.3 % (42.0-52.0); HEMOGLOBIN 15.1 g/dl (14.0-17.9); LYMPHOCYTES # (AUTO) 0.7 X10'3 (1.1-4.8); MEAN CORPUSCULAR HEMOGLOBIN 32.4 PG (27.0-31.0); MEAN CORPUSCULAR HGB CONC 33.5 g/dL (33.0-36.5); MEAN CORPUSCULAR VOLUME 96.9 FL (78-98); MEAN PLATELET VOLUME 7.9 FL (7.4-10.4); MONOCYTES # (AUTO) 0.5 X10'3 (0-0.9); MONOCYTES % (AUTO) 4.4 % (2-12); NEUTROPHILS # (AUTO) 9.4 X10'3 (1.8-7.7); NEUTROPHILS % (AUTO) 88.5 % (42-75); PLATELET COUNT 278 X10'3 (140-440); RED BLOOD COUNT 4.67 X10'6 (4.70-6.10); RED CELL DISTRIBUTION WIDTH 14.6 % (11.5-14.5); WHITE BLOOD COUNT 10.6 X10'3 (4.5-11.0)
[2021-11-24 11:16] LABS: ALANINE AMINOTRANSFERASE 59 U/L (12-78); ALBUMIN 2.6 G/DL (3.4-5.0); ALBUMIN/GLOBULIN RATIO 0.6 (1.1-1.5); ALKALINE PHOSPHATASE 39 IU/L (46-116); ASPARTATE AMINO TRANSFERASE 26 U/L (10-37); BILIRUBIN,TOTAL 0.8 MG/DL (0.1-1.0); BLOOD UREA NITROGEN 25 MG/DL (7-18); BUN/CREATININE RATIO 29.4 (5.4-32.0); CALCIUM 8.8 MG/DL (8.5-10.1); CREATININE 0.85 MG/DL (0.60-1.10); GLUCOSE 133 MG/DL (70-104); LACTATE DEHYDROGENASE 273 U/L (85-227); TOTAL CARBON DIOXIDE 25.4 MMOL/L (24-32); TOTAL PROTEIN 6.8 G/DL (6.4-8.2); eGFR 89 ML/MIN
--- NOTE | 2021-11-24 11:53 | NUR ---
PAGER ID: [phone] MESSAGE: [phone], Yarelis, patient is telling me you said she is going home but then told her you were going to contact the surgeon about her gallbladder? there are dc orders am i to discharge her or not? [email or web address] [id number] Addendum: 11/24/21 at 1259 by Daila Andrews RN DISREGARD WRONG PT
[2021-11-24] MEDS ORDERED: OLAN5TAB75 PO (12:29)
[2021-11-24] MEDS ORDERED: CIPR500S2 PO (12:29)
[2021-11-24] MEDS ORDERED: PRED10TA PO (12:29)
[2021-11-24] MEDS ORDERED: DILT60TA35 PO (12:29)
[2021-11-24] MEDS ORDERED: LEVO125T PO (12:40)
[2021-11-24] MEDS ORDERED: lactose-reduced food (Ensure Enlive) - 237ml bottle PO SCH (13:00)
[2021-11-24] MEDS: HYDROcodone/acetaminophen 5mg/325mg tablet PO PRN (13:30)
--- NOTE | 2021-11-24 14:26 | NUR ---
Discharge instructions given verbally over the phone to Yary, also went over instructions with patient but he is forgetful at baseline. All medications sent to [facility] in [place], is to pick him up at 1445.
--- NOTE | 2021-11-24 14:45 | NUR ---
Patient discharged to private vehicle with Yary.
[2021-11-25 08:57] LABS: POTASSIUM 4.4 MMOL/L (3.3-5.1)
[2021-11-25 15:42] LABS: ANION GAP 8 (8-16); CHLORIDE 105 MMOL/L (99-107); POTASSIUM 4.4 MMOL/L (3.5-5.1); SODIUM 138 MMOL/L (135-145)
== END 2021-11-24 16:59 | disposition home or self-care (01) | DRG 871 ==
LOC: ER 13:23 → ED HOLD 17:22 → UNDOADMIN 17:22 → ED HOLD 17:39 → PCU 3S 22:30 → ED HOLD 22:30 → ORTHO 4S 11-19 17:00
PROVIDERS: ADMIT Family Medicine; ATTEND Family Medicine
PROC: BW211ZZ Computerized Tomography (CT Scan) of Abdomen and Pelvis using Low Osmolar Contrast (ICD-10-PCS; 2021-11-17)
PROC: XW033E5 Introduction of Remdesivir Anti-infective into Peripheral Vein, Percutaneous Approach, New Technology Group 5 (ICD-10-PCS; principal; 2021-11-20)
DX: A41.59 Other Gram-negative sepsis (principal); U07.1 COVID-19; J96.01 Acute respiratory failure with hypoxia; G93.41 Metabolic encephalopathy; J12.82 Pneumonia due to coronavirus disease 2019; I21.A1 Myocardial infarction type 2; J44.0 Chronic obstructive pulmonary disease with (acute) lower respiratory infection; N17.9 Acute kidney failure, unspecified; I48.91 Unspecified atrial fibrillation; E03.9 Hypothyroidism, unspecified; E78.5 Hyperlipidemia, unspecified; E05.90 Thyrotoxicosis, unspecified without thyrotoxic crisis or storm; M10.9 Gout, unspecified; F03.90 Unspecified dementia, unspecified severity, without behavioral disturbance, psychotic disturbance, mood disturbance, and anxiety; E83.42 Hypomagnesemia; I12.9 Hypertensive chronic kidney disease with stage 1 through stage 4 chronic kidney disease, or unspecified chronic kidney disease; K90.0 Celiac disease; N18.9 Chronic kidney disease, unspecified; Z78.1 Physical restraint status; Z79.01 Long term (current) use of anticoagulants; Z80.0 Family history of malignant neoplasm of digestive organs; Z86.711 Personal history of pulmonary embolism; Z86.718 Personal history of other venous thrombosis and embolism; Z88.5 Allergy status to narcotic agent; Z88.2 Allergy status to sulfonamides; Z90.49 Acquired absence of other specified parts of digestive tract; Z56.0 Unemployment, unspecified
CPT/HCPCS: 36415; 70450; 71045; 74177; 80053; 80061; 80202; 80305; 81001; 82140; 83605; 83615; 83735; 83880; 84100; 84145; 84443; 84484; 85025; 85379; 85610; 85730; 86140; 87040; 87077; 87081; 87186; 92508; 92616; 93005; 94640; 94760; 96365; 96367; 96375; 96376; 97110; 97116; 97161; 97530; 99291; G0378; J0696; J1100; J1630; J2060; J2543; J3370; J3490; J7030; Q9967

== ENCOUNTER 2022-03-07 05:30 | Day surgery (SDC) | payer MEDICARE ==
[2022-02-28 13:02] LABS: BASOPHILS % (AUTO) 0.1 % (0-1); EOSINOPHILS # (AUTO) 0.1 X10'3 (0-0.9); LYMPHOCYTES # (AUTO) 3.5 X10'3 (1.1-4.8); LYMPHOCYTES % (AUTO) 48.1 % (21-51); MEAN CORPUSCULAR HEMOGLOBIN 32.1 PG (27.0-31.0); MEAN CORPUSCULAR HGB CONC 33.5 g/dL (33.0-36.5); MEAN CORPUSCULAR VOLUME 95.9 FL (78-98); MEAN PLATELET VOLUME 7.2 FL (7.4-10.4); MONOCYTES # (AUTO) 0.5 X10'3 (0-0.9); MONOCYTES % (AUTO) 6.5 % (2-12); NEUTROPHILS # (AUTO) 3.2 X10'3 (1.8-7.7); NEUTROPHILS % (AUTO) 44.3 % (42-75); PRE OP HEMATOCRIT 43.6 % (42.0-52.0); PRE OP HEMOGLOBIN 14.6 g/dL (14.0-17.9); PRE OP PLATELET COUNT 239 X10'3 (140-440); RED BLOOD COUNT 4.54 X10'6 (4.70-6.10); RED CELL DISTRIBUTION WIDTH 14.9 % (11.5-14.5)
[2022-02-28 13:05] LABS: CLARITY,URINE CLEAR (Clear); COLOR,URINE YELLOW (Yellow); GLUCOSE, URINE NEGATIVE (Neg); KETONES,URINE NEGATIVE (Neg); LEUKOCYTE ESTERASE ,URINE NEGATIVE (Neg); NITRITES, URINE NEGATIVE (Neg); OCCULT BLOOD,URINE NEGATIVE (Neg); PH,URINE 5.5 (4.8-8.0); PROTEIN,URINE NEGATIVE (Neg); UROBILINOGEN,URINE 0.2 E.U/dL (0.2-1.0)
[2022-02-28 13:07] LABS: UA COLLECTION TYPE VOIDED
[2022-02-28 13:17] LABS: ALBUMIN 3.3 G/DL (3.4-5.0); ALKALINE PHOSPHATASE 62 IU/L (46-116); BLOOD UREA NITROGEN 15 MG/DL (7-18); BUN/CREATININE RATIO 12.7 (5.4-32.0); CALCIUM 8.7 MG/DL (8.5-10.1); CHLORIDE 108 MMOL/L (99-107); CREATININE 1.18 MG/DL (0.60-1.10); PRE OP ALT 35 U/L (30-65); PRE OP ANION GAP 7 (8-16); PRE OP AST 24 U/L (10-37); PRE OP BILIRUB, TOTAL 0.5 MG/DL (0.0-1.0); PRE OP GLUCOSE 90 MG/DL (70-104); PRE OP POTASSIUM 4.1 MMOL/L (3.4-5.1); PRE OP SODIUM 142 MMOL/L (135-145); TOTAL PROTEIN 6.5 G/DL (6.4-8.2); eGFR 61 ML/MIN
[2022-03-07] VITALS (10 sets, daily range): BP systolic 143–187; BP diastolic 78–111
[~2022-03-07] VITALS: Ht 188 cm; Wt 104.2 kg
[~2022-03-07 05:30] MED LIST changes: -ALBU18HF2 INH; +ALBU18HF2 PO; +ALLO300T8 PO; -BENA40TA73 PO; +COLC0.6T72 PO; +DOCUMENT DATE & TIME OF BETA-BLOCKER PO ONE; +DOXY-224 PO; -FURO-150 PO; -LEVO500T90 PO; +LIOT25TA12 PO; -LIOT25TA6 PO; -LOP25T PO; +METO-395 PO; -METR500T PO; +MONT-40 PO; -MONT10TA21 PO; -PRED50TA PO; +SPIR25TA5 PO; +TIOT4MIS2 PO; -TIOT4MIS5 INH; -TRAM50TA2 PO; +albuterol 2.5 MG/3 ML nebule NEB ONE; +ceFAZolin inj. 2,000 MG in dextrose 5%-water 100 ML IV ONE; +famotidine 20mg tablet PO ONE; +ringers solution, lacted 1,000 ML IV SCH
[2022-03-07] MEDS ORDERED: BUPIVAcaine/PF 2.5mg/ml (0.25%) 10ml vial ONE ×2 (06:46→08:05)
[2022-03-07] MEDS ORDERED: bacitracin 15gm ointment TP ONE (06:46)
[2022-03-07] MEDS ORDERED: rocuronium 10mg/ml inj IV ONE (07:17)
[2022-03-07] MEDS ORDERED: sevoflurane 250ml liquid IH ONE (07:17)
[2022-03-07] MEDS ORDERED: fentaNYL/PF 50MCG/1 ML 2ML syringe ONE (07:18)
[2022-03-07] MEDS ORDERED: ringers solution, lacted 1,000 ML IV SCH (07:35)
[2022-03-07] MEDS ORDERED: HYDROmorphone/PF 0.2 MG/ML SYRINGE IV PRN ×2 (07:35)
[2022-03-07] MEDS ORDERED: fentaNYL/PF 50MCG/1 ML 2ML syringe IV PRN ×2 (07:35)
[2022-03-07] MEDS ORDERED: ondansetron/PF 4mg/2ml inj IV PRN (07:35)
[2022-03-07] MEDS ORDERED: sugammadex 200mg/2ml injection IV ONE (07:51)
[2022-03-07] MEDS ORDERED: dexamethasone sod phosphate 4mg/ml inj. ONE (07:51)
[2022-03-07] MEDS ORDERED: LIDOcaine 1%/PF 5ML 10 MG/ML VIAL ONE (07:51)
[2022-03-07] MEDS ORDERED: propofol inj 20 ML IV ONE (07:51)
[2022-03-07] MEDS ORDERED: ondansetron/PF 4mg/2ml inj ONE (07:51)
--- NOTE | 2022-03-07 07:58 | NUR ---
Received from OR via [facility] , accompanied by Anesthesiologist BHAVNA and report given by Anesthesiolgist. PATIENT WITH DAVIAN BANDAGE TO RIGHT LE THAT IS ALL CDI. TOES ARE ALL PWD AT THIS TIME. 20G PIV IN LEFT UE RUNNING LR AT 100. Addendum: 03/07/22 at 0810 by Christian Williamson RN, RN Amended: Links added.
--- NOTE | 2022-03-07 09:18 | NUR ---
ALL DISCHARGE CRITERIA HAS BEEN MET. VSS, PAIN AT A TOLERABLE LEVEL, VOIDING AND ABLE TO SAFELY AMBULATE AND TRANSFER SELF. IV TAKEN OUT WITHOUT ANY COMPLICATIONS. ALL DISCHARGE INSTRUCTIONS COVERED WITH PATIENT AND ALL QUESTIONS ANSWERED. PATIENT TAKEN OUT VIA WHEELCHAIR TO PERSONAL VEHICLE WHERE FAMILY/FRIEND DROVE PATIENT HOME. Addendum: 03/07/22 at 0928 by Christian Williamson RN, RN Amended: Links added.
== END 2022-03-07 09:18 | disposition home or self-care (01) ==
LOC: PAS 05:30
PROVIDERS: ATTEND Podiatrist Foot & Ankle Surgery
DX: D36.13 Benign neoplasm of peripheral nerves and autonomic nervous system of lower limb, including hip (principal); M86.8X7 Other osteomyelitis, ankle and foot; L97.519 Non-pressure chronic ulcer of other part of right foot with unspecified severity; M19.071 Primary osteoarthritis, right ankle and foot; M19.072 Primary osteoarthritis, left ankle and foot; J45.909 Unspecified asthma, uncomplicated; I48.91 Unspecified atrial fibrillation; I10 Essential (primary) hypertension; E03.9 Hypothyroidism, unspecified; K21.9 Gastro-esophageal reflux disease without esophagitis; M10.9 Gout, unspecified; G25.2 Other specified forms of tremor; Z79.01 Long term (current) use of anticoagulants; Z79.899 Other long term (current) drug therapy; Z88.5 Allergy status to narcotic agent; Z88.2 Allergy status to sulfonamides; Z90.49 Acquired absence of other specified parts of digestive tract; Z98.890 Other specified postprocedural states; Z87.891 Personal history of nicotine dependence; Z72.89 Other problems related to lifestyle; Z91.018 Allergy to other foods; Z86.711 Personal history of pulmonary embolism; Z86.718 Personal history of other venous thrombosis and embolism; Z82.3 Family history of stroke; Z81.8 Family history of other mental and behavioral disorders
CPT/HCPCS: 28825; 36415; 64782; 80053; 81003; 82948; 85025; 93005; A6223; J0690; J1100; J2405; J2704; J3010; J3490; J7030; J7060; J7120; Z7506; Z7512; A4215; A4618; A6446; A6449; A7000

== ENCOUNTER 2025-04-05 23:25 | Inpatient (IN) | payer MEDICARE ==
[~2025-04-05] VITALS: Ht 188 cm; Wt 101.8 kg
[~2025-04-05 23:25] MED LIST changes: -DOCUMENT DATE & TIME OF BETA-BLOCKER PO ONE; -RABE20TA31 PO; +RABE20TA32 PO; -TIOT4MIS2 PO; -albuterol 2.5 MG/3 ML nebule NEB ONE; -ceFAZolin inj. 2,000 MG in dextrose 5%-water 100 ML IV ONE; -famotidine 20mg tablet PO ONE; -ringers solution, lacted 1,000 ML IV SCH
[2025-04-06] VITALS (13 sets, daily range): BP systolic 143–153; BP diastolic 86–93; PULSE 62–77; RESP 15–20; TEMP 97.7–98; O2SAT 90–96
--- NOTE | 2025-04-06 00:43 | Physician Documentation ---
History of Present Illness ~ Chief Complaint: Leg Pain Stated Complaint: LEG PAIN Time Seen by MD: 00:42 Primary Medical Doctor: lindsay ELLSWORTH Patient presents to the emergency room for evaluation of left lower extremity pain. He has been having problems with this leg for years with history of sciatica. Symptoms have gotten significantly worse over the past two weeks. He has history of previous clots in his on Eliquis. Reports that he was at [facility] for evaluation but he is also having some degree of chest discomfort therefore a CT scan was performed which was negative for pulmonary embolism however patient reports it is they did not know investigation into the leg. He has taken ibuprofen and Tylenol for pain last dose at 6:00 p.m.. Tetanus witin 5 years: Yes Medication Reconciliation Allergies: Coded Allergies: gluten (Unverified Allergy, Severe, 08/18/18) Patient reports history of celiacs for 4-5 years Sulfa (Sulfonamide Antibiotics) (Unverified Allergy, Unknown, "SEVERE HEADACHE", 06/05/22) hydromorphone (Verified Allergy, Unknown, AGGRESSION, 04/05/25) morphine (Verified Adverse Reaction, Mild, "REACTS BADLY WITH NO MEMORY", 12/28/23) Scheduled Allopurinol (Allopurinol), 1 TAB PO DAILY, (Reported) Apixaban (Eliquis), 1 TAB PO Q12H, (Reported) Budesonide/Formoterol Fumarate (Symbicort 160-4.5 Mcg Inhaler), 2 PUFFS INH Q12 H, (Reported) Colchicine (Colchicine), 1 TAB PO BID, (Reported) Doxycycline Hyclate (Doxycycline Hyclate), 1 CAP PO DAILY Levothyroxine Sodium (Synthroid), 1 TAB PO DAILY, (Reported) Liothyronine Sodium* (Liothyronine Sodium*), 1 TAB PO DAILY, (Reported) Metoprolol Succinate (Metoprolol Succinate), 1 TAB PO DAILY, (Reported) Montelukast Sodium (Montelukast Sodium), 1 TAB PO DAILY, (Reported) Rabeprazole Sodium (Rabeprazole Sodium), 1 TAB PO DAILY, (Reported) Spironolactone (Spironolactone), 1 TAB PO DAILY, (Reported) Scheduled PRN Albuterol Sulfate (Ventolin Hfa), 2 PUFFS PO QID PRN for SOB or wheezing, (Reported) Past Medical History Past Medical History: *PULMONARY*, Asthma, COPD, Deep Vein Thrombosis Past Surgical History: cholecystectomy Patient History: FH: colon cancer FATHER MOTHER FH: colon cancer FATHER MOTHER Alcohol Use: Rarely Drug Use: none Lives with: Spouse Lives In: Home Occupation: unemployed Review of Systems ROS All review of systems negative except as per HPI Physical Exam Vital Signs: Temperature: 97.9, Source: Temporal, Heart Rate: 85, Respiratory Rate: 18, BP: 137/77, Pulse Oximetry: 97, Weight: 101.800 Oxygen Flow Rate: 0 Physical Exam General: Patient is awake, alert, oriented x4 in mild distress Head: Normocephalic and atraumatic. Eyes: Conjunctival normal. EOMI. PERRL. ENT: Mucous membranes moist. Neck: Supple, trachea is midline. Chest: Clear to auscultation bilaterally without rales, rhonchi, or wheezes. There is no accessory muscle use or retractions. Cardiac: RRR without murmurs, gallops, or rubs. Abd: Soft, nondistended, nontender, with normoactive bowel sounds. No guarding, rebound, or rigidity. Extremities: Tenderness to palpation to posterior knee. Neurovascularly intact. No erythema Progress Results/Orders Results/Orders Orders - STEVENSON CONCEPCION MD Vl Venous (04/06/25 01:14) Cbc/Diff (04/06/25 03:14) Urinalysis, Cult If Indicated (04/06/25 03:14) BMP (04/06/25 03:14) Page Hospitalist (04/06/25 03:14) Fill Out Med Reconciliation (04/06/25 03:14) Completed Orders - STEVENSON CONCEPCION MD Ondansetron Inj. (Zofran 4mg/2ml Vial) (04/06/25 00:50) Fentanyl/Pf (Fentanyl 0.05 Mg/Ml Syringe (04/06/25 00:50) Acetaminophen 1,000mg/100ml Iv (Ofirmev (04/06/25 00:50) Ketorolac Trometh 15mg/Ml Vial (Toradol (04/06/25 00:50) Orphenadrine Citrate Inj. (Norflex Inj.) (04/06/25 00:50) Vl Venous (04/06/25 01:14) Fentanyl/Pf (Fentanyl 0.05 Mg/Ml Syringe (04/06/25 02:00) Gabapentin Capsule (Neurontin Capsule) (04/06/25 02:40) Medications Received in ER Medications (Trade) Dose Ordered Sig/Bhupinder Route PRN Reason Start Time Stop Time Status Last Admin Dose Admin (Zofran 4mg/2ml vial) 4 mg ONCE ONCE IV 04/06/25 00:50 04/06/25 00:53 DC 04/06/25 01:33 4 MG (fentaNYL 0.05 MG/ML syringe) 50 mcg ONCE ONCE IV 04/06/25 00:50 04/06/25 00:53 DC 04/06/25 01:21 50 MCG Acetaminophen 100 ml @ 400 mls/hr ONCE ONCE IV 04/06/25 00:50 04/06/25 01:04 DC 04/06/25 01:28 400 MLS/HR (Toradol injection) 15 mg ONCE ONCE IV 04/06/25 00:50 04/06/25 00:55 DC 04/06/25 01:35 15 MG (Norflex inj.) 30 mg ONCE ONCE IM 04/06/25 00:50 04/06/25 00:55 DC 04/06/25 01:25 30 MG (fentaNYL 0.05 MG/ML syringe) 50 mcg ONCE ONCE IV 04/06/25 02:00 04/06/25 02:03 DC 04/06/25 02:20 50 MCG (Neurontin capsule) 400 mg ONCE ONCE PO 04/06/25 02:40 04/06/25 02:42 DC 04/06/25 03:10 400 MG Vital Signs 04/05/25 04/06/25 04/06/25 04/06/25 23:29 01:21 01:35 02:20 Temp 97.9 Pulse 85 Resp 18 12 12 12 B/P (MAP) 137/77 Pulse Ox 97 O2 Flow Rate 0 Medical Decision Making Findings Patient presented to the emergency room with left leg pain as per HPI. Differentials include but are not limited to sciatica, DVT, Emery's cyst, muscle spasms. Ultrasound negative for acute process. Patient's symptoms likely secondary to sciatica. Multiple opioid administrations performed and gabapentin in his started along with Tylenol and Toradol and patient continues to have significant pain and we will not do well on outpatient basis. Departure Admitted to Inpatient Unit: yes, to hospitalist Impression: Primary Impression: Intractable neuropathic pain of left lower extremity Condition: Guarded Referrals: NO PRIMARY CARE PROVIDER (PCP) Signature Scribe Signature: No scribe Attestation: The note accurately reflects work and decisions made by me.Stevenson Concepcion MD 04/06/25 03:30 STEVENSON CONCEPCION MD Apr 06, 2025 00:43
[2025-04-06] MEDS: fentaNYL/PF 50MCG/1 ML 2ML syringe IV ONE ×2 (01:21→02:20)
[2025-04-06] MEDS: orphenadrine citrate 60mg/2ml inj. IM ONE (01:25)
[2025-04-06] MEDS: acetaminophen 1,000mg/100ml IV 100 ML IV ONE (01:28)
[2025-04-06] MEDS: ondansetron/PF 4mg/2ml inj IV ONE (01:33)
[2025-04-06] MEDS: ketorolac trometh 15mg/ml vial 15 MG/ML ML IV ONE (01:35)
[2025-04-06 04:10] LABS: MEAN PLATELET VOLUME 6.5 FL (7.4-10.4); RED CELL DISTRIBUTION WIDTH 14.2 % (11.5-14.5)
[2025-04-06 04:18] LABS: CREATININE 1.15 MG/DL (0.60-1.10); TOTAL CARBON DIOXIDE 25.7 MMOL/L (24-32); eCRCL 65 ML/MIN; eGFR 62 ML/MIN
[2025-04-06] MEDS ORDERED: ondansetron/PF 4mg/2ml inj IV PRN (04:50)
[2025-04-06] MEDS ORDERED: magnesium hydroxide 30ml (MOM) UD suspension PO PRN (04:50)
[2025-04-06] MEDS ORDERED: potassium Cl 20 mEq SR tablet PO PRN ×2 (04:50)
[2025-04-06] MEDS ORDERED: magnesium Cl slow-release 64mg tablet PO PRN (04:50)
[2025-04-06] MEDS ORDERED: magnesium sulf-water 2g/50mL 50 ML IV PRN (04:50)
[2025-04-06] MEDS ORDERED: magnesium sulf-water 4G/100mL 100 ML IV PRN (04:50)
[2025-04-06] MEDS ORDERED: potassium Cl 40MEQ/1/2NS 520ml 520 ML IV PRN (04:50)
[2025-04-06] MEDS ORDERED: mag hydrox/Alum hydrox/simeth 30ml oral suspension PO PRN (04:50)
[2025-04-06] MEDS ORDERED: HYDROcodone/acetaminophen 5mg/325mg tablet PO PRN (04:50)
[2025-04-06 04:52] LABS: LEUKOCYTE ESTERASE ,URINE NEGATIVE (Neg); NITRITES, URINE NEGATIVE (Neg); OCCULT BLOOD,URINE TRACE-INTACT (Neg); UA COLLECTION TYPE NON-SPECIFIED
--- NOTE | 2025-04-06 05:07 | HISTORY AND PHYSICAL-Residence ---
History & Physical Providers to CC Resident Creating Document: DARIO MARTINEZ RES ~ History of Present Illness Primary Medical Doctor: lindsay maza Reason for Admit\\Complaint: Lower back pain and left lower extremity pain History of Present Illness The 74-year-old male with a past medical history of AFib, DVT, PE presented to the ER with a chief concern of left lower extremity pain. Stated that he had a fall about two weeks back when his dog pulled him . He fell on his left side and was dragged. States that he hit his head to the floor and lost consciousness for about 2-3 minutes. Since then, complains of left lower extremity pain mainly on the lateral side. Stated that the pain is mainly in the feet and radiates to above the knee. Also complains of low back pain. Also has low back pain and complains of increased pain with movement. Feels that he has we will fall if he walks by himself. Stated that the pain is sometimes sharp shooting and sometimes dull achy. Denies any nausea, vomiting, blurry vision after the fall. He also had two falls about 3-4 months back while working on a chimney. He went to [facility] on 03/29/2025 and was evaluated for chest pain. Back then, EKG showed sinus rhythm troponin negative. 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 No evidence for acute leakage or rupture, mesenteric panniculitis, calcification of the coronary arteries, subacute fracture of the left anterior 10th rib, subacute versus chronic fracture of the left anterior 4th and 5th ribs, multiple simple appearing parapelvic and cortical cysts of the bilateral kidneys, mild fatty atrophy of pancreas, multiple small hypodense nonenhancing lesions throughout the liver suggestive of small cysts and hamartomas, scoliosis with moderate degenerative changes of the lumbar spine. Patient denies any chest pain, shortness of breath, nausea or vomiting, dysuria, constipation or diarrhea, dizziness, palpitations or any other concerns. Stated that he wants the reason for the pain and does not want to leave and come back later. 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 He is unsure when he had a PE and left lower extremity DVT but thinks that it was few years back. Allergies: Coded Allergies: gluten (Unverified Allergy, Severe, 08/18/18) Patient reports history of celiacs for 4-5 years Sulfa (Sulfonamide Antibiotics) (Unverified Allergy, Unknown, "SEVERE HEADACHE", 06/05/22) hydromorphone (Verified Allergy, Unknown, AGGRESSION, 04/05/25) morphine (Verified Adverse Reaction, Mild, "REACTS BADLY WITH NO MEMORY", 12/28/23) Home Medications Home Medications Active Reported Allopurinol 300 Mg Tablet 1 Tab PO DAILY Synthroid (Levothyroxine Sodium) 150 Mcg Tablet 1 Tab PO DAILY Spironolactone 25 Mg Tablet 1 Tab PO DAILY Eliquis (Apixaban) 5 Mg Tablet 1 Tab PO Q12H Montelukast Sodium 10 Mg Tablet 1 Tab PO DAILY Ventolin Hfa (Albuterol Sulfate) 18 Gm Hfa.aer.ad 2 Puffs PO QID PRN Liothyronine Sodium* (Liothyronine Sodium) 25 Mcg Tablet 1 Tab PO DAILY Metoprolol Succinate 25 Mg Tab.sr.24h 1 Tab PO DAILY Colchicine 0.6 Mg Tablet 1 Tab PO BID Rabeprazole Sodium 20 Mg Tablet.dr 1 Tab PO DAILY 30 Days Symbicort 160-4.5 Mcg Inhaler (Budesonide/Formoterol Fumarate) 10.2 Gm Hfa.aer.ad 2 Puffs INH Q12H Past Medical History Past Medical History Asthma, COPD, Deep Vein Thrombosis, PE, celiac disease Past Surgical History Surgical History Comment Cholecystectomy, 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 Not clearly mentioning if he had any nonhealing ulcer Family History Family History: FH: colon cancer FATHER MOTHER FH: colon cancer FATHER MOTHER Past Social History Social History Comment Quit smoking tobacco 25 years back. Was smoking half pack of cigarettes per day for few years. Has one drink once a month. Denies abusing any other recreational drugs Alcohol Use: Rarely Drug Use: None Lives with: Spouse Lives In: Home Occupation: unemployed ROS ROS Constitutional: No fever, chills, dizziness, weakness, weight gain or loss Eyes: No pain, erythema, discharge, blurring of vision ENT: No sore throat, epistaxis, tinnitus Cardiovascular: No chest pain, chest pressure, chest discomfort, palpitations, syncope, lower extremity edema, paroxysmal nocturnal dyspnea Respiratory: No shortness of breath, cough, hemoptysis Gastrointestinal: Normal appetite. No nausea, vomiting, diarrhea, constipation, hematemesis, abdominal pain, bloating, melena or fresh blood Genitourinary: No frequency, urgency, nocturia, hematuria or dysuria Musculoskeletal: Left lower extremity pain and lower back pain present. Integumentary: No change in skin, hair, nails. No swelling, bruising, abrasions Neurologic: No headache, neck pain, numbness or tingling of the extremities, weakness Psychiatric: No delusions, depression, loss of interest in normal activity or change in sleep pattern, hallucinations, suicidal ideations Endocrine: No fatigue, weakness, polydipsia, polyuria, change in appetite, heat or cold intolerance, sweating, dry skin Hematological: No bleeding, petechiae, bruising Allergies: No asthma or urticaria Exam Vitals: Vital Signs Date Time Temp Pulse Resp B/P (MAP) Pulse Ox O2 Delivery O2 Flow Rate FiO2 04/06/25 02:21 12 04/06/25 00:00 04/05/25 23:29 97.9 85 97 0 General: Alert and oriented x4 HEENT: Normocephalic and atraumatic. Pupils equal round reactive to light and accommodation. Extraocular movements intact. Oral and nasal mucosa moist Neck: Trachea is in midline. No masses or JVD Chest: Bilateral normal breath sounds. No crackles, rhonchi or wheezes Cardiovascular: Regular rate and rhythm. S1-S2 normal. No rubs or murmurs Abdomen: Soft, nontender nondistended. Bowel sounds present Extremities: No cyanosis, clubbing or edema. Rght foot-s/p 5th toe amputation and DIP of 2nd to 4th toes. Diminished Bilateral pedal pulse 1 +. No acute limb ischemic changes like purplish discoloration, paranoid, paresthesia. But has pain at rest. Has dilated superficial veins on bilateral feet. Central Nervous System: No gross sensory or motor deficits. CN II to XII intact. Has pain in the back while moving left leg. Straight leg test negative on the right side. Patient could not tolerate raising the left leg Musculoskeletal: Low lumbar spine tenderness and paraspinal tenderness on the left side Skin: Warm and dry Diagnostic Data Last Recorded Lab Results: 04/06/25 0352 04/06/25 0352 Advance Care Planning Advanced Care plannin - 30 Minutes Additional Plan Intractable Low back pain and left lower extremity pain Possible fracture - lumbar spine x-ray and hip x-ray ordered Pending DVT Bilateral arterial ultrasound and JUANA ordered as he has decreased pulse Recommend bilateral lower extremity CTA if needed Continue Shields and Percocet for pain management States that he can not tolerate morphine and IV Dilaudid Received Tylenol, fentanyl, Ketoralac and gabapentin 100 mg p.o. in the ER A1c and vitamin B12 ordered - but does not look like a neuropathic pain Continue normal saline 50 cc/hour CT at the outside hospital done on 03/29/2025 showed scoliosis with moderate degenerative changes in the lumbar spine PT evaluation Mechanical fall and loss of consciousness About two weeks back Head CT ordered Paroxysmal AFib Now in sinus rhythm and regular rate EKG ordered Continue Eliquis 5 mg p.o. b.i.d. Continue other home medications after med reconciliation TSH ordered Residual chronic pulmonary emboli History of left lower extremity DVT Pending venous ultrasound Continue Eliquis 5 mg p.o. b.i.d. 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
[2025-04-06 05:12] LABS: MUCUS STRANDS FEW /LPF (Neg); SQUAMOUS EPITHELIAL CELL,UR FEW /LPF (FEW)
[2025-04-06] MEDS: HYDROcodone/acetaminophen 10/325mg tab PO PRN (05:19)
[2025-04-06] MEDS: normal saline 1000ml 1,000 ML IV SCH (05:21)
--- NOTE | 2025-04-06 06:27 | VASCULAR REPORT ---
Left lower extremity venous duplex Clinical History: Pain. Comparison: None Findings: Duplex Doppler evaluation of the deep venous systems of the left lower extremity from the common femo ral to the popliteal vein including color Doppler and spectral/pulsed waveform analysis was performed . LEFT SIDE: The common femoral vein demonstrates appropriate compressibility and waveform variability. There is compressibility/patency of the great saphenous vein at the proximal thigh. The femoral vein demonstrates appropriate compressibility and waveform variability. The deep femoral vein demonstrates appropriate compressibility and waveform variability. The popliteal vein demonstrates appropriate compressibility and waveform variability. There is normal compressibility at the tibioperoneal trunk. Contralateral common femoral vein shows normal compressibility and waveform variability. Impression: 1. No deep venous thrombosis in the left lower extremity.
--- NOTE | 2025-04-06 06:30 | ELECTROCARDIOGRAPH REPORT ---
[facility] Test Date: 2025-04-06 Test Time: 05:03:18 Pat Name: KARIN SALES Department: EMERGENCY ROOM Room: ED 11 1 Gender: M Pest Management Supervisor: MARY KAY : 1950 Requested By: DARIO HARDING Order Number: [id number] Reading MD: Measurements Intervals [place] Rate: 68 P: 70 OR: 221 QRS: 7 QRSD: 103 T: 43 QT: 428 QTc: 456 Interpretive Statements Sinus rhythm Prolonged OR interval Abnormal R-wave progression, early transition Please click the below link to view image of tracing.
--- NOTE | 2025-04-06 06:52 | RADIOLOGY REPORT ---
INDICATION: look for fracture COMPARISON: None TECHNIQUE: 4 views of the lumbar spine were obtained. FINDINGS: The bones are demineralized which limits evaluation. There is levoscoliosis. The lumbar vertebral alignment is normal. Multilevel intervertebral disc space narrowing and facet arthropathy. No acute fracture, vertebral compression deformity or aggressive osseous lesions. The paravertebral soft tissues are grossly unremarkable. There are atherosclerotic calcifications in the aorta. IMPRESSION: 1. No high-grade compression fracture. 2. Scoliosis and multilevel lumbar spondylosis.
--- NOTE | 2025-04-06 06:53 | RADIOLOGY REPORT ---
CHEST RADIOGRAPH Indication: rib fracture Technique: Single frontal view of the chest was obtained Comparison: DI CHEST,SINGLE VIEW on DOS: 12/28/23 FINDINGS: Lines and Tubes: None Lungs: No focal consolidation. Pleura: No effusion. No pneumothorax. Cardiomediastinal contours: Unremarkable Bones: No acute osseous abnormality. IMPRESSION: 1. No acute cardiopulmonary disease.
--- NOTE | 2025-04-06 06:53 | RADIOLOGY REPORT ---
EXAM: CT CT HEAD INDICATION: fall and loss of consciousness TECHNIQUE: CT of the head without intravenous contrast. Radiation Dose : 1. Head: CT Dose: CTDI volume is 57.92 mGy. Dose-length product is 1034.92 mGy*cm The dose indicators for CT are the volume Computed Tomography (CT) Dose Index (CTDIvol) and the Dose Length Product (DLP), and are measured in units of mGy and mGy-cm, respectively. These indicators are not patient dose, but values generated from the CT scanner acquisition factors. The report includes radiation exposure data for exposures received during this examination. COMPARISON: CT CT HEAD on DOS: 12/28/23, CT HEAD on DOS: 11/17/21 FINDINGS: There is no evidence of acute intracranial hemorrhage, extra-axial collection, mass effect, midline s hift, herniation or hydrocephalus. Increased prominence of the ventricles, sulci and cisterns is consistent with the sequelae of atrophi c cortical volume loss. The carbajal-white differentiation is intact. Moderate diffuse confluent periventricular and subcortical white matter hypoattenuation is nonspecifi c but may be related to small vessel ischemic disease. The visualized paranasal sinuses and mastoid air cells are clear. The surrounding soft tissues and osseous structures are unremarkable. IMPRESSION: 1. No acute intracranial abnormality. 2. Chronic sequelae of microvascular disease and atrophic cortical volume loss. Radiation optimization: All CT scans at this facility use at least one of these dose optimization aleksandr hniques: automated exposure control mA and/or kV adjustment per patient size (includes targeted exam s where dose is matched to clinical indication) or iterative reconstruction.
--- NOTE | 2025-04-06 06:54 | RADIOLOGY REPORT ---
PROCEDURE: Left hip radiographs. INDICATION: look for fracture TECHNIQUE: Frontal and lateral views of the left hip were obtained. COMPARISON: None FINDINGS: There is no evidence of fracture or dislocation. Bilateral hip joint space narrowing. IMPRESSION: 1. No fracture or dislocation. 2. Degenerative changes in the bilateral hips.
[2025-04-06] MEDS: K and/or MAG REPLACEMENT MC SCH (08:00)
[2025-04-06] MEDS: pantoprazole 40mg Tablet.DR PO SCH (08:47)
[2025-04-06] MEDS: levoTHYROXINE 75mcg tablet PO SCH (08:47)
[2025-04-06] MEDS: metoprolol succinate 25mg (24-HOUR) SR. Tablet PO SCH (08:47)
[2025-04-06] MEDS ORDERED: albuterol 1.25 MG/3 ML (1/2 strength) nebule NEB PRN (08:50)
[2025-04-06 08:59] LABS: CREATININE 1.31 MG/DL (0.60-1.10); eCRCL 57 ML/MIN; eGFR 53 ML/MIN
[2025-04-06] MEDS: LIOthyronine 25mcg tablet PO SCH (09:52)
[2025-04-06] MEDS: ipratropium/albuterol 3ml nebule NEB SCH (11:26)
[2025-04-06] MEDS ORDERED: iohexol 350 MG/ML 50ML vial IV ONE (12:42)
--- NOTE | 2025-04-06 14:13 | RADIOLOGY REPORT ---
CLINICAL INDICATION: Swelling of left leg post a fall TECHNIQUE: 3 radiographic views of the left tibia/fibula were obtained. Comparison: None FINDINGS/IMPRESSION: There is no evidence of acute fracture or dislocation. Chronic lateral malleolus fracture. The visualized joint space is well maintained. The alignment is anatomical. There is no radiopaque foreign body.
--- NOTE | 2025-04-06 14:50 | VASCULAR REPORT ---
EXAM: VASC VL JUANA ANKLE/BRACHIAL INDEX CLINICAL HISTORY: Pain left leg Peripheral vascular disease COMPARISON: None TECHNIQUE: Bilateral systolic ankle and brachial pressures are obtained, with ankle pulse volume waveforms and i ndices. FINDINGS: Pressures: Right Left Brachial 116 mmHg 140 mmHg PT 140 mmHg 184 mmHg DP 152 mmHg 144 mmHg JUANA: Right Left 1.09 1.31 Pulse volume waveforms: Multiphasic IMPRESSION: Normal JUANA bilaterally 1.0-1.4: normal 0.91-0.99 borderline 0.9: abnormal (i.e. PAD) 0.4-0.9: [id number] PAD <0.4: suggestive of severe PAD
--- NOTE | 2025-04-06 14:51 | VASCULAR REPORT ---
Bilateral Lower Extremity Arterial Duplex Clinical History: Left leg pain Comparison: None Technique: Duplex Doppler evaluation including color Doppler and spectral/pulsed waveform analysis of the lower extremity arteries was performed. Findings: RIGHT: Peak systolic velocities are less than 150 cm/sec. The waveforms are multiphasic. LEFT: Peak systolic velocities are less than 150 cm/sec. The waveforms are multiphasic. IMPRESSION: No hemodynamically significant stenosis based on peak systolic velocity criteria. REFERENCE VALUES, [facility]) vascular Imaging Lab Criteria: Peak systolic velocity rang es (in cm/sec) are as follows: <150 cm/s - <20 % stenosis 150-200 cm/s - 20-49% stenosis 200-300 cm/s - 50-75% stenosis >300 cm/s -> 75% stenosis
--- NOTE | 2025-04-06 17:59 | RADIOLOGY REPORT ---
Indication: TO RULE OUT ACUTE LIMB ISCHEMIA Technique: CT axial images of the bilateral lower extremity are obtained with intravenous contrast. Coronal and sagittal reformats were obtained. Radiation Dose Information: CTDI volume is 4.8 mGy. Dose-length product is 1815 mGy*cm Comparison: None FINDINGS: Infrarenal abdominal aorta demonstrates atherosclerotic calcification disease. EDDI patent. The commo n, external iliac1 arteries demonstrate no high-grade stenosis. 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 Right SFA and popliteal arteries demonstrate no high-grade stenoses. There is insufficient opacification of the right infrapopliteal/ mid to distal tibial vasculature. The pro ximal to mid right anterior tibial, posterior tibial and peroneal arteries are patent. The left TRUCK CRANE OPERATOR HELPER, SFA and popliteal arteries demonstrate no high-grade stenoses. Moderate calcification o f the distal left SFA. There is insufficient opacification / characterization of the left mid to dist al infrapopliteal/tibial vasculature. The proximal vein left anterior tibial, posterior tibial and pe roneal arteries are patent. 1 bladder distended. Peripelvic renal cysts bilaterally. Left renal cyst measuring 3.4 cm. Bladder pa rtially distended. Bilateral fat containing inguinal hernias. No inguinal lymphadenopathy. Small bilateral suprapatellar effusions, [id number]. Mild bilateral lower extremity soft tissue edema / stranding. 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 No hemodynamically significant stenosis of the bilateral SFA, popliteal arteries. Insufficient opacification of the bilateral infrapopliteal / mid to disc tibial vasculature limiting evaluation. Recommend duplex arterial ultrasound to evaluate and exclude arterial occlusion Bilateral lower extremity soft tissue edema / stranding which could be secondary to cellulitis, other infectious / inflammatory etiologies.
--- NOTE | 2025-04-06 20:14 | PROGRESS NOTE- Residence ---
Progress Note - Resident Providers to CC ~ Objective Vital Signs Date Time Temp Pulse Resp B/P (MAP) Pulse Ox O2 Delivery O2 Flow Rate FiO2 04/06/25 19:25 71 20 Room Air 0.0 21 04/06/25 19:20 92 04/06/25 18:30 98.0 143/86 (105) Result Diagram: 04/06/25 0352 04/06/25 0844 Plan Plan Peripheral arterial disease Acute pain due to recent trauma Patient presented with symptoms of acute intractable left lower extremity and back pain post recent trauma two weeks ago Tibia/fibular x-rays were done which was negative for any fractures. Lumbar x-ray reported: No high-grade compression fracture.Scoliosis and multilevel lumbar spondylosis. 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 No hemodynamically significant stenosis of the bilateral SFA, popliteal arteries. Plan: Initiated aspirin 81 mg Continue [place] and Percocet for pain management Continue normal saline 50 cc/hour. Will possibly consult Dr. Forde Mechanical fall and loss of consciousness Patient had a fall two weeks back and loss of consciousness for 2-3 minutes, no amnesia Head CT was negative, no further intervention needed Hypothyroidism: Patient had thyroidectomy done few years back, he takes levothyroxine 150 mcg and liothyronine 25 mcg Patient's TSH is at 44.93 and T4 0.72, Initiated a higher dose of levothyroxine 200 mcg Paroxysmal AFib Continue patient's home medication Eliquis 5 mg b.i.d. 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
[2025-04-06 21:21] LABS: URINE AMPHETAMINE SCREEN NEGATIVE (Neg); URINE BARBITUATE SCREEN NEGATIVE (Neg); URINE BENZODIAZEPINES SCREEN NEGATIVE (Neg); URINE CANNABINOID SCREEN NEGATIVE (Neg); URINE COCAINE SCREEN NEGATIVE (Neg); URINE METHADONE SCREEN NEGATIVE (Neg); URINE OPIATE SCREEN POSITIVE (Neg); URINE PHENCYCLIDINE SCREEN NEGATIVE (Neg)
[2025-04-07] VITALS (16 sets, daily range): BP systolic 126–179; BP diastolic 84–106; PULSE 72–90; RESP 16–19; TEMP 97.4–98; O2SAT 91–97
[2025-04-07 06:10] LABS: MEAN PLATELET VOLUME 6.6 FL (7.4-10.4); RED CELL DISTRIBUTION WIDTH 14.0 % (11.5-14.5)
[2025-04-07 06:17] LABS: APTT 30 SECONDS (22-32); INR 1.1 INR
[2025-04-07 06:32] LABS: CHOL/HDL RATIO 3.6 (0.00-4.99); CREATININE 1.32 MG/DL (0.60-1.10); LDL CHOLESTEROL 70 MG/DL (50-100); PHOSPHORUS 3.5 MG/DL (2.3-4.5); TOTAL CARBON DIOXIDE 28.7 MMOL/L (24-32); eCRCL 56 ML/MIN; eGFR 53 ML/MIN
[2025-04-07] MEDS: levoTHYROXINE 100mcg tablet PO SCH (07:42)
[2025-04-07] MEDS: aspirin 81mg, enteric-coated 1 TAB TABLET.DR PO SCH (07:42)
[2025-04-07] MEDS ORDERED: levoTHYROXINE 75mcg tablet PO SCH (08:00)
--- NOTE | 2025-04-07 15:47 | PROGRESS NOTE- Residence ---
Progress Note - Resident Providers to CC Resident Creating Document: KRYSTYNA MEAD RES ~ Antibiotic Timeout Antibiotic Ordered?: No Subjective Patient was seen and examined at bedside, still complains of left lower extremity pain. Vascular surgery was consulted recommended outpatient follow up. Objective Vital Signs Date Time Temp Pulse Resp B/P (MAP) Pulse Ox O2 Delivery O2 Flow Rate FiO2 04/07/25 14:46 16 04/07/25 11:46 78 Room Air 0.0 21 04/07/25 11:38 91 04/07/25 06:00 97.9 126/88 (101) Result Diagram: 04/07/25 0504 04/07/25 0504 Awake , alert, and oriented x4, resting comfortably in the bed, in no acute distress HEENT: Atraumatic, normocephalic, EOMI, anicteric sclera ; pink conjunctiva Neck: Trachea midline. Supple, full range of motion, no JVD Cardiac: Regular rhythm, regular rate with no murmurs all over the precordium. Respiratory: Equal breath sounds bilaterally, no tachypnea, no wheezing ,rub or rales, Chest wall is symmetric and without deformity. Gastrointestinal: Abdomen symmetric, non-distended, soft, non-tender, normal bowel sounds x4 quadrant, normoactive, no hepatosplenomegaly Musculoskeletal: Right lower extremity: No pedal edema no cyanosis, pulses felt Left lower extremity: Slightly bulky, shiny with no hair, SLRT negative, severe tenderness on motion, pulses felt but feeble Neurological: Speech is clear, alert, and oriented x 4. No motor or sensory deficit, deep tendon reflexes normal, cerebellar intact. Cranial nerves II-XII intact. Skin: Warm and dry Coagulation Studies Laboratory Tests Test 04/07/25 05:04 Prothrombin Time 11.4 SECONDS (9.0-12.0) INR International Normalized Ratio 1.1 INR Activated Partial Thromboplast Time 30 SECONDS (22-32) Coagulation Comments Advance Care Planning Advanced Care plannin - 30 Minutes Assessment Assessment A 74-year-old male, was admitted for further evaluation of peripheral artery disease. His CTA showed 65% stenosis of common femoral artery but however his JUANA was negative, hence further management as outpatient Plan Plan Imaging: Tibia/Fibula X-rays: No fracture Lumbar Spine X-ray: Multilevel spondylosis, scoliosis Head CT: Negative Arterial U/S: No hemodynamically significant stenosis Vascular U/S: No DVT CTA Lower Extremity: Moderate right HEEL COVERER stenosis (60%); no significant SFA or popliteal stenosis CTA Aorta: Atherosclerotic ulcer with mural thrombus at infrarenal aorta 1. Peripheral Arterial Disease (PAD) The patient exhibits classic physical findings of PAD including shiny skin and hair loss over the shins. Vascular imaging shows moderate (~60%) stenosis of the right common femoral artery on lower extremity CTA (03/29/25), but no hemodynamically significant stenosis in the superficial femoral or popliteal arteries. Arterial Doppler ultrasound also confirmed absence of significant stenosis based on peak systolic velocity. Ankle-Brachial Index (JUANA) was normal. Dr. Forde (vascular surgery) was consulted: recommended outpatient management given imaging and JUANA findings. Continue aspirin 81 mg daily for vascular protection Ordered echocardiogram per Dr. Forde Education has been provided on PAD symptoms (claudication, rest pain, ulceration) Encourage walking program Ordered atorvastatin 20 mg daily, lipid panel normal 2. Acute Left Lower Extremity and Back Pain (Post-Trauma)- musculoskeletal in origin Patient reports severe, persistent lower extremity and back pain after a mechanical fall two weeks ago. Tibia/fibula x-rays showed no fracture. Lumbar spine x-ray demonstrated scoliosis and multilevel spondylosis, but no compression fractures. No DVT on vascular ultrasound. Pain is likely musculoskeletal in origin Continue [place] and Percocet Physical therapy evaluation if pain improves 3. Mechanical Fall with Brief Loss of Consciousness Fall two weeks ago with reported 23 minutes of LOC but no amnesia or seizure- like activity. Head CT was negative No ongoing neurologic symptoms Likely vasovagal or orthostatic in context Fall risk precautions in place Monitor hemodynamics, evaluate need for cardiac or neuro workup if symptoms recur 4. Hypothyroidism Poorly Controlled Patient is status post thyroidectomy, taking levothyroxine 150 mcg and liothyronine 25 mcg. Current labs show TSH 44.93 (?) and Free T4 0.72 (?) ? indicates significant under-replacement. Increased levothyroxine to 200 mcg daily Properly compliance required Recheck TSH and Free T4 in 4 weeks 5. Paroxysmal Atrial Fibrillation Oscar Vasc score 3 Patient is currently in sinus rhythm and on Eliquis 5 mg BID No recent episodes of palpitations or irregular rhythm reported Continue Eliquis Monitor for bleeding or thromboembolic symptoms 6. Chronic Kidney Disease (Stage 2) Current creatinine is 1.32 mg/dL, stable and consistent with patients baseline of 1.21.3 Continue IV normal saline at 100 cc/hour for renal support Avoid nephrotoxic medications Monitor renal function daily during hospitalization 7. Celiac Disease Stable No symptoms of malabsorption, abdominal pain, or dietary non-compliance reported. Continue gluten-free diet Monitor labs for deficiencies (iron, B12, vitamin D) outpatient 8. Atherosclerotic Aortic Ulcer with Mural Thrombus Identified on CTA abdomen/pelvis (03/29/25): Atherosclerotic ulcer with partial mural thrombus at the infrarenal aorta, measuring 3.4 2.4 cm Currently asymptomatic Outpatient vascular surgery follow-up recommended Schedule serial imaging (CT angiogram or ultrasound) every 612 months to monitor size and progression Continue aspirin for vascular protection and control risk factors (HTN, lipids) Code Status: Full code DVT Prophylaxis: Eliquis Analgesia/ Sedation: Percocet Line/tubes: P IV PT: Ordered Prognosis: Guarded Disposition: Continue medical management, outpatient follow up probable discharge tomorrow Krystyna Mead MD Internal Medicine Resident, PGY-2 Date of Service: Apr 07, 2025 Billing Provider: NYDIA GONZALEZ MD,KRYSTYNA, RES Apr 07, 2025 15:47
[2025-04-07] MEDS: normal saline 1000ml 1,000 ML IV SCH (17:58)
[2025-04-08] VITALS (15 sets, daily range): BP systolic 116–185; BP diastolic 74–94; PULSE 65–96; RESP 15–18; TEMP 97.3–98.9; O2SAT 92–98
[2025-04-08 05:55] LABS: MEAN PLATELET VOLUME 6.7 FL (7.4-10.4); RED CELL DISTRIBUTION WIDTH 14.2 % (11.5-14.5)
[2025-04-08 06:05] LABS: APTT 30 SECONDS (22-32); INR 1.1 INR
[2025-04-08 06:10] LABS: CREATININE 1.27 MG/DL (0.60-1.10); PHOSPHORUS 3.3 MG/DL (2.3-4.5); TOTAL CARBON DIOXIDE 29.5 MMOL/L (24-32); eCRCL 58 ML/MIN; eGFR 55 ML/MIN
[2025-04-08] MEDS ORDERED: CITA40TA30 PO (13:13)
--- NOTE | 2025-04-08 17:23 | PROGRESS NOTE- Residence ---
Progress Note - Resident Providers to CC Resident Creating Document: MATTIE CHAVEZ RES CC: NYDIA GONZALEZ MD ~ Antibiotic Timeout Antibiotic Ordered?: No Subjective Patient was seen and examined at bedside, still complains of extreme left lower extremity pain. Ordered MRI of the left hip and lumbar spine, awaiting results Objective Vital Signs Date Time Temp Pulse Resp B/P (MAP) Pulse Ox O2 Delivery O2 Flow Rate FiO2 04/08/25 16:20 85 17 Room Air 0.0 04/08/25 16:15 94 21 04/08/25 10:00 98.9 116/74 (88) Awake , alert, and oriented x4, resting comfortably in the bed, in no acute distress HEENT: Atraumatic, normocephalic, EOMI, anicteric sclera ; pink conjunctiva Neck: Trachea midline. Supple, full range of motion, no JVD Cardiac: Regular rhythm, regular rate with no murmurs all over the precordium. Respiratory: Equal breath sounds bilaterally, no tachypnea, no wheezing ,rub or rales, Chest wall is symmetric and without deformity. Gastrointestinal: Abdomen symmetric, non-distended, soft, non-tender, normal bowel sounds x4 quadrant, normoactive, no hepatosplenomegaly Musculoskeletal: Right lower extremity: No pedal edema no cyanosis, pulses felt Left lower extremity: Slightly bulky, shiny with no hair, SLRT positive, severe tenderness on motion, pulses felt but feeble Neurological: Speech is clear, alert, and oriented x 4. Bilateral essential tremors noted on the upper extremities, deep tendon reflexes normal, cerebellar intact. Cranial nerves II-XII intact. Skin: Warm and dry Result Diagram: 04/08/25 0423 04/08/25 0423 Coagulation Studies Laboratory Tests Test 04/08/25 04:23 Prothrombin Time 11.5 SECONDS (9.0-12.0) INR International Normalized Ratio 1.1 INR Activated Partial Thromboplast Time 30 SECONDS (22-32) Coagulation Comments Assessment Assessment A 74-year-old male, was admitted for further evaluation of peripheral artery disease. His CTA showed 65% stenosis of common femoral artery but however his JUANA was negative. Further evaluation Plan Plan 1. Peripheral Arterial Disease (PAD) Patient has classic physical findings of PAD including shiny skin and hair loss over the shins. Vascular imaging shows moderate (~60%) stenosis of the right common femoral artery on lower extremity CTA (03/29/25), but no hemodynamically significant stenosis in the superficial femoral or popliteal arteries. JUANA was normal. 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 No hemodynamically significant stenosis of the bilateral SFA, popliteal arteries. Echocardiogram 04/08/2025: Normal left ventricular size function, mild concentric hypertrophy LVEF is 60%, right ventricle severely dilated with reduced systolic function Dr. Forde (vascular surgery) was consulted: recommended outpatient management given imaging and JUANA findings. Plan: Continue aspirin 81 mg daily for vascular protection Education has been provided on PAD symptoms (claudication, rest pain, ulceration) Encourage walking program Ordered atorvastatin 20 mg daily, lipid panel normal 2. Acute Left Lower Extremity and Back Pain (Post-Trauma) Patient reports severe, persistent lower extremity and back pain after a mechanical fall two weeks ago. Tibia/fibula x-rays showed no fracture. Lumbar spine x-ray demonstrated scoliosis and multilevel spondylosis, but no compression fractures. No DVT on vascular ultrasound. Plan: Ordered MRI lumbar spine and left hip; for possible sciatica Added gabapentin 300 mg from today for his neuropathic pain Continue [place] and Percocet Physical therapy evaluation if pain improves 3. Mechanical Fall with Brief Loss of Consciousness Fall two weeks ago with reported 23 minutes of LOC but no amnesia or seizure- like activity. Head CT was negative No ongoing neurologic symptoms Likely vasovagal or orthostatic in context Fall risk precautions in place Monitor hemodynamics, evaluate need for cardiac or neuro workup if symptoms recur 4. Hypothyroidism Poorly Controlled Patient is status post thyroidectomy, taking levothyroxine 150 mcg and liothyronine 25 mcg. Current labs show TSH 44.93 (?) and Free T4 0.72 (?) ? indicates significant under-replacement. Increased levothyroxine to 200 mcg daily Properly compliance required Recheck TSH and Free T4 in 4 weeks 5. Paroxysmal Atrial Fibrillation Oscar Vasc score 3 Patient is currently in sinus rhythm and on Eliquis 5 mg BID No recent episodes of palpitations or irregular rhythm reported Continue Eliquis Monitor for bleeding or thromboembolic symptoms 6. Chronic Kidney Disease (Stage 2) Current creatinine is 1.33 mg/dL, stable and consistent with patients baseline of 1.21.3 Continue IV normal saline at 100 cc/hour for renal support Avoid nephrotoxic medications Monitor renal function daily during hospitalization 7. Celiac Disease Stable No symptoms of malabsorption, abdominal pain, or dietary non-compliance reported. Continue gluten-free diet Monitor labs for deficiencies (iron, B12, vitamin D) outpatient 8. Anxiety Patient takes citalopram 40 mg once a day, Continue his home medication from today 9. Atherosclerotic Aortic Ulcer with Mural Thrombus Identified on CTA abdomen/pelvis (03/29/25): Atherosclerotic ulcer with partial mural thrombus at the infrarenal aorta, measuring 3.4 2.4 cm Currently asymptomatic Outpatient vascular surgery follow-up recommended Schedule serial imaging (CT angiogram or ultrasound) every 612 months to monitor size and progression Continue aspirin for vascular protection and control risk factors (HTN, lipids) 10. Hypertension Continue patient's home medication metoprolol 25 mg, spironolactone 25mg Code Status: Full code DVT Prophylaxis: Eliquis Analgesia/ Sedation: Percocet Line/tubes: PIV PT: Ordered Prognosis: Guarded Disposition: Continue medical management,f/u MRI Mattie Chavez MD Internal Medicine Resident, PGY-1 Date of Service: Apr 08, 2025 Billing Provider: NYDIA GONZALEZ MD,MATTIE, RES Apr 08, 2025 17:23
--- NOTE | 2025-04-08 19:05 | CARDIOLOGY REPORT ---
APPROVED REPORT EXAM: Comprehensive 2D, Doppler, and color-flow Echocardiogram. Patient Location: 40[address] Blood Pressure: 116/74 mmHg Heart Rate: 88-129 bpm Rhythm: Atrial Fibrillation Indications Coronary Artery Disease Leg Pain Hx of DVT/Pulmonary Embolism Hx of Atrial Fibrillation (on Eloquis) COPD Asthma Senior It Assistant: Concha ROONEY DO Previous echo: 12/28/2023 [facility] EF:70-75%, sev RV, 2D Dimensions RVDd 4.3 cm LA Diam4.2 cm IVSd 1.2 (0.7-1.1cm) LVDd 4.4 cm PWd 1.2 (0.7-1.1cm) IVSs 1.2 (0.8-1.2cm) RA Minor4.5 cmLVDs 3.0 (2.5-4.0cm) PWs 1.3 (0.8-1.2cm) LVOT Diameter 2.14 (1.8-2.4cm) LVEF(%) 60.7 (>50%) FS (%) 32.2 % SV 52.8 ml CO 8.2 L/min M-Mode Dimensions MV EPSS 1.0 (<0.5cm) Aortic Valve AoV Peak Godfrey. 109.7 cm/s AoV VTI 21.8 cm AO Peak GR. 4.8 mmHg AO Mean GR. 3 mmHg LVOT VTI 18.60 cm LVOT Peak Godfrey. 119.8 cm/s ASHISH(VTI)/BSA 3.07 cm2/m2 ASHISH (VTI) 3.07 cm2 Mitral Valve MV E Velocity 80.9 cm/s MV Peak Gr. 6 mmHg MV Mean Gr. 1 mmHg MV PHT 52 ms MVA (PHT) 4.23 cm2 MV SVea945.7 cm/s MV VMean56.2 cm/sMVA VTI3.02 cm2 MV VTI24.0 cm Tricuspid Valve TR P. Velocity 176 cm/s RAP ESTIMATE 10 mmHg TR Peak Gr. 12 mmHg RVSP 22 mmHg LEFT VENTRICLE Normal LV size and function. Mild concentric hypertrophy. Overall LVEF appears to be around 60%. RIGHT VENTRICLE Right ventricle appears to bed severely dilated with reduced systolic function. Estimated PA systolic pressure is 22 mmHg. ATRIA Left atrium is mildly dilated. Right atrium is mildly dilated. AORTIC VALVE Probable trileaflet AV appears sclerotic without stenosis or insufficiency. MITRAL VALVE Mild MV annular calcification and thickening. No stenosis with trace regurgitation. TRICUSPID VALVE TV appears structurally normal with trace regurgitation. PULMONIC VALVE Normal PV without stenosis, trace insufficiency. GREAT VESSELS The aortic root is normal in size. IVC is not well visualized. PERICARDIUM Normal pericardium. No pericardial effusion seen. Other Information Study Quality: Fair. TDS due to lung disease and body habitus. Conclusion Normal LV size and function. Mild concentric hypertrophy. Overall LVEF appears to be around 60%. Right ventricle appears to bed severely dilated with reduced systolic function. Estimated PA systoli c pressure is 22 mmHg. Left atrium is mildly dilated. Right atrium is mildly dilated. Probable trileaflet AV appears sclerotic without stenosis or insufficiency. Mild MV annular calcification and thickening. No stenosis with trace regurgitation. TV appears structurally normal with trace regurgitation. Normal pericardium. No pericardial effusion seen.
[2025-04-09] VITALS (13 sets, daily range): BP systolic 109–180; BP diastolic 70–104; PULSE 80–101; RESP 16–20; TEMP 97.5–98.6; O2SAT 94–100
[2025-04-09 05:58] LABS: MEAN PLATELET VOLUME 6.7 FL (7.4-10.4); RED CELL DISTRIBUTION WIDTH 14.1 % (11.5-14.5)
[2025-04-09 06:04] LABS: APTT 31 SECONDS (22-32); INR 1.2 INR
[2025-04-09 06:20] LABS: CREATININE 1.13 MG/DL (0.60-1.10); PHOSPHORUS 3.2 MG/DL (2.3-4.5); TOTAL CARBON DIOXIDE 27.6 MMOL/L (24-32); eCRCL 66 ML/MIN; eGFR 63 ML/MIN
--- NOTE | 2025-04-09 11:21 | RADIOLOGY REPORT ---
CLINICAL INDICATION: Sciatica COMPARISON: CT CTA LOWER EXTREMITY on DOS: 04/06/25 TECHNIQUE: Multiplanar, multi-sequence MRI of the left hip was performed without intravenous contrast. Contralateral hip is included on the large [id number] sequences. Contrast: None INTERPRETATION: There is artifact possibly related to the MRI coil which limits evaluation. Joint space, Bones: There is no significant left hip joint effusion. Left hip joint space narrowing. There are subchondral cysts on both sides of the left hip joint. The articular cartilage is not we ll evaluated due to artifact. No abnormal alignment. No acute fracture or marrow replacing lesion. No avascular necrosis. Lower lumbar spondylosis. Tendons, muscles and bursae: There is no tendon abnormality. Muscles are normal in bulk and signal ch aracteristics. There is no evidence of bursitis. Acetabular labrum: No detached labral tear. Other: Coarse of the left sciatic nerve is visualized and is unremarkable. Bilateral fat containing umbilical hernias. IMPRESSION: 1. Mild left hip osteoarthritis. 2. Unremarkable MRI appearance of the visualized portions of the left sciatic nerve. 3. Lumbar spondylosis. Please see separate MRI lumbar spinal cord.
--- NOTE | 2025-04-09 16:52 | RADIOLOGY REPORT ---
PROCEDURE: MRI lumbar spine without contrast. INDICATION: Sciatica COMPARISON: Radiograph of the lumbar spine dated 04/06/2025. TECHNIQUE: MRI lumbar spine without intravenous contrast utilizing multiplanar, multisequence techni que. FINDINGS: The alignment of the lumbar spine vertebral bodies is preserved. Heterogeneous bone signal characteri stics. Endplate edema at L3-L4 likely due to disc degeneration. The vertebral body heights are mainta ined. There is multilevel intervertebral disc space narrowing and diminished T2 signal intensity thro ughout the lumbar spine consistent with desiccation. The conus medullaris is normal in signal charact eristics and terminates at the T12-L1 level. Paraspinal muscles are unremarkable. At the T12-L1 level, there is no evidence of central spinal canal or neuroforaminal stenosis. At the L1-L2 level, there is posterior disc bulge, ligamentum flavum thickening and facet hypertrophy . There is mild spinal stenosis. There is narrowing of the lateral recesses. Severe bilateral neura l foraminal stenosis. At the L2-L3 level, there is broad-based posterior disc bulge, ligamentum flavum thickening and facet hypertrophy. There is moderate spinal stenosis. There is severe narrowing of the lateral recesses. Severe bilateral neural foraminal stenosis with impingement of the exiting bilateral L2 nerve roots. At the L3-L4 level, there is broad-based posterior disc bulge, ligamentum flavum thickening and facet hypertrophy. There is moderate to severe spinal stenosis. Severe bilateral neural foraminal stenosi s with impingement of the bilateral exiting L3 nerve roots. At the L4-L5 level, there is broad-based posterior disc bulge and facet hypertrophy. There is mild s bria stenosis. Narrowing of the lateral recesses. Severe bilateral neural foraminal stenosis. At the L5-S1 level, there is broad-based posterior disc bulge. There is narrowing of the lateral rece sses. No significant spinal stenosis. Moderate to severe right and severe left neural foraminal sebastien nosis. Impingement of the exiting left L5 nerve root. Other: None. IMPRESSION: 1. Multilevel lumbar spondylosis with multilevel severe neural foraminal stenosis and nerve root impi ngement as described at each level above. HS:Y
--- NOTE | 2025-04-09 17:42 | PROGRESS NOTE- Residence ---
Progress Note - Resident Providers to CC Resident Creating Document: MATTIE CHAVEZ, LUBNA CC: NYDIA GONZALEZ MD ~ Antibiotic Timeout Antibiotic Ordered?: No Subjective Patient was seen and examined at bedside, still complains of extreme left lower extremity pain. No other acute overnight symptoms Objective Vital Signs Date Time Temp Pulse Resp B/P (MAP) Pulse Ox O2 Delivery O2 Flow Rate FiO2 04/09/25 15:44 91 18 95 Room Air* 0 21 04/09/25 10:00 98.6 109/70 (83) General: Awake , alert, and oriented x4, resting comfortably in the bed, in no acute distress HEENT: Atraumatic, normocephalic, EOMI, anicteric sclera ; pink conjunctiva Neck: Trachea midline. Supple, full range of motion, no JVD Cardiac: Regular rhythm, regular rate with no murmurs all over the precordium. Respiratory: Equal breath sounds bilaterally, no tachypnea, no wheezing ,rub or rales, Chest wall is symmetric and without deformity. Gastrointestinal: Abdomen symmetric, non-distended, soft, non-tender, normal bowel sounds x4 quadrant, normoactive, no hepatosplenomegaly Musculoskeletal: Right lower extremity: No pedal edema no cyanosis, pulses felt Left lower extremity: Slightly bulky, shiny with no hair, SLRT positive, severe tenderness on motion, pulses felt but feeble Neurological: Speech is clear, alert, and oriented x 4. Bilateral essential tremors noted on the upper extremities, deep tendon reflexes normal, cerebellar intact. Cranial nerves II-XII intact. Skin: Warm and dry Result Diagram: 04/09/25 0425 04/09/25 0425 Coagulation Studies Laboratory Tests Test 04/09/25 04:25 Prothrombin Time 11.7 SECONDS (9.0-12.0) INR International Normalized Ratio 1.2 INR Activated Partial Thromboplast Time 31 SECONDS (22-32) Coagulation Comments Assessment Assessment A 74-year-old male, was admitted for further evaluation of peripheral artery disease. His CTA showed 65% stenosis of common femoral artery but however his JUANA was negative. Further evaluation Plan Plan 1. Multilevel lumbar spondylosis with multilevel severe neural foraminal stenosis and nerve root impingement Patient reports severe, persistent lower extremity and back pain after a mechanical fall two weeks ago. Tibia/fibula x-rays showed no fracture. Lumbar spine x-ray demonstrated scoliosis and multilevel spondylosis, but no compression fractures. No DVT on vascular ultrasound Lower extremity MRI:04/09/2025 1. Mild left hip osteoarthritis. 2. Unremarkable MRI appearance of the visualized portions of the left sciatic nerve. 3. Lumbar spondylosis. Lumbar spine MRI 04/09/2025: At the L1-L2 level, there is posterior disc bulge, ligamentum flavum thickening and facet hypertrophy. There is mild spinal stenosis. There is narrowing of the lateral recesses. Severe bilateral neural foraminal stenosis. At the L2-L3 level, there is broad-based posterior disc bulge, ligamentum flavum thickening and facet hypertrophy. There is moderate spinal stenosis. There is severe narrowing of the lateral recesses. Severe bilateral neural foraminal stenosis with impingement of the exiting bilateral L2 nerve roots. At the L3-L4 level, there is broad-based posterior disc bulge, ligamentum flavum thickening and facet hypertrophy. There is moderate to severe spinal stenosis. Severe bilateral neural foraminal stenosis with impingement of the bilateral exiting L3 nerve roots. At the L4-L5 level, there is broad-based posterior disc bulge and facet hypertrophy. There is mild spinal stenosis. Narrowing of the lateral recesses. Severe bilateral neural foraminal stenosis. At the L5-S1 level, there is broad-based posterior disc bulge. There is narrowing of the lateral recesses. No significant spinal stenosis. Moderate to severe right and severe left neural foraminal stenosis. Impingement of the exiting left L5 nerve root. Plan: Added gabapentin 300 mg from yesterday for his neuropathic pain, Continue [place] and Percocet Possible neurosurgery consult tomorrow 2. Peripheral Arterial Disease (PAD) Patient has classic physical findings of PAD including shiny skin and hair loss over the shins. Vascular imaging shows moderate (~60%) stenosis of the right common femoral artery on lower extremity CTA (03/29/25), but no hemodynamically significant stenosis in the superficial femoral or popliteal arteries. JUANA was normal. CTA 04/06/2025 :Moderate stenosis of the right [employer]IED [employer]ICE [employer]IDENT, approximately 60%. No hemodynamically significant stenosis of the bilateral SFA, popliteal arteries. Echocardiogram 04/08/2025: Normal left ventricular size function, mild concentric hypertrophy LVEF is 60%, right ventricle severely dilated with reduced systolic function Dr. Forde (vascular surgery) was consulted: recommended outpatient management given imaging and JUANA findings. Plan: Continue aspirin 81 mg daily for vascular protection Education has been provided on PAD symptoms (claudication, rest pain, ulceration) Encourage walking program Ordered atorvastatin 20 mg daily, lipid panel normal 3. Mechanical Fall with Brief Loss of Consciousness Fall two weeks ago with reported 23 minutes of LOC but no amnesia or seizure- like activity. Head CT was negative No ongoing neurologic symptoms Likely vasovagal or orthostatic in context Fall risk precautions in place Monitor hemodynamics, evaluate need for cardiac or neuro workup if symptoms recur 4. Hypothyroidism Poorly Controlled Patient is status post thyroidectomy, taking levothyroxine 150 mcg and liothyronine 25 mcg. Current labs show TSH 44.93 (?) and Free T4 0.72 (?) ? indicates significant under-replacement. Increased levothyroxine to 200 mcg daily Properly compliance required Recheck TSH and Free T4 in 4 weeks 5. Paroxysmal Atrial Fibrillation Oscar Vasc score 3 Patient is currently in sinus rhythm and on Eliquis 5 mg BID No recent episodes of palpitations or irregular rhythm reported Continue Eliquis Monitor for bleeding or thromboembolic symptoms 6. Chronic Kidney Disease (Stage 2) Current creatinine is 1.13, stable and consistent with patients baseline of 1.21.3 Continue IV normal saline at 100 cc/hour for renal support Avoid nephrotoxic medications Monitor renal function daily during hospitalization 7. Celiac Disease Stable No symptoms of malabsorption, abdominal pain, or dietary non-compliance reported. Continue gluten-free diet Monitor labs for deficiencies (iron, B12, vitamin D) outpatient 8. Anxiety Patient takes citalopram 40 mg once a day,temazepam 15mg Continue his home medication 9. Atherosclerotic Aortic Ulcer with Mural Thrombus Identified on CTA abdomen/pelvis (03/29/25): Atherosclerotic ulcer with partial mural thrombus at the infrarenal aorta, measuring 3.4 2.4 cm Currently asymptomatic Outpatient vascular surgery follow-up recommended Schedule serial imaging (CT angiogram or ultrasound) every 612 months to monitor size and progression Continue aspirin for vascular protection and control risk factors (HTN, lipids) 10. Hypertension Continue patient's home medication metoprolol 25 mg, spironolactone 25mg Code Status: Full code DVT Prophylaxis: Eliquis Analgesia/ Sedation: Percocet Line/tubes: PIV PT: Ordered Prognosis: Guarded Disposition: Continue medical management, possible neurosurgery consult tomorrow Mattie Chavez MD Internal Medicine Resident, PGY-1 Date of Service: Apr 09, 2025 Billing Provider: NYDIA GONZALEZ MD, JAHNAVI, RES Apr 09, 2025 17:42
[2025-04-09] MEDS ORDERED: TEMA15CA PO (18:39)
[2025-04-09] MEDS ORDERED: BENA40TA90 PO (18:39)
[2025-04-09] MEDS: propranolol 10mg tablet PO SCH (21:10)
[2025-04-10] VITALS (8 sets, daily range): BP systolic 150–180; BP diastolic 82–104; PULSE 79–89; RESP 16–18; TEMP 97.3–97.8; O2SAT 93–97
[2025-04-10 05:51] LABS: INR 1.2 INR
[2025-04-10 05:55] LABS: CREATININE 1.27 MG/DL (0.60-1.10); PHOSPHORUS 2.5 MG/DL (2.3-4.5); TOTAL CARBON DIOXIDE 24.4 MMOL/L (24-32); eCRCL 58 ML/MIN; eGFR 55 ML/MIN
[2025-04-10 05:59] LABS: MEAN PLATELET VOLUME 6.5 FL (7.4-10.4); RED CELL DISTRIBUTION WIDTH 14.2 % (11.5-14.5)
[2025-04-10] MEDS ORDERED: ASPI-1071 PO (12:46)
[2025-04-10] MEDS ORDERED: LEVO100T9 PO (12:46)
[2025-04-10] MEDS ORDERED: GABA300C PO (12:50)
--- NOTE | 2025-04-10 18:25 | DISCHARGE SUMMARY-Residence ---
Discharge Summary Providers to CC Resident Creating Document: SAPPHIRE CHAVEZ, LUBNA CC: NYDIA GONZALEZ MD ~ Discharge Summary Admission Diagnosis: Back pain/left leg pain/fall Hospital Course DATE OF ADMISSION: 04/06/2025 DATE OF DISCHARGE: 04/10/2025 Discharge Diagnosis\Comment: Multilevel lumbar spondylosis with multilevel severe neural foraminal stenosis and nerve root impingement Peripheral Arterial Disease (PAD) Hypothyroidism Poorly Controlled Paroxysmal Atrial Fibrillation Chronic Kidney Disease (Stage 2) Celiac Disease Stable Anxiety Atherosclerotic Aortic Ulcer with Mural Thrombus Hypertension Operations\Procedures: NONE Consultants: Complications: NONE Condition on DC: Stable New Medications: Gabapentin (Neurontin) 300 Mg Capsule 1 CAP PO BID for 30 Days, #60 CAP 0 Refills Aspirin (Ecotrin*) 81 Mg Tablet.dr 1 TAB PO DAILY for 30 Days, #30 TAB.SR Levothyroxine Sodium (Levothyroxine Sodium) 100 Mcg Tablet 200 MCG PO DAILY for 30 Days, #30 TAB Continued Medications: Albuterol Sulfate (Ventolin Hfa) 18 Gm Hfa.aer.ad 2 PUFFS PO QID PRN for SOB or wheezing Allopurinol (Allopurinol) 300 Mg Tablet 1 TAB PO DAILY Apixaban (Eliquis) 5 Mg Tablet 1 TAB PO Q12H Benazepril HCl (Benazepril HCl) 40 Mg Tablet 1 TAB PO DAILY Budesonide/Formoterol Fumarate (Symbicort 160-4.5 Mcg Inhaler) 10.2 Gm Hfa.aer.ad 2 PUFFS INH Q12H, #10.6 GM Citalopram Hydrobromide (Citalopram HBr) 40 Mg Tablet 1 TAB PO DAILY Colchicine (Colchicine) 0.6 Mg Tablet 1 TAB PO BID Liothyronine Sodium* (Liothyronine Sodium*) 25 Mcg Tablet 1 TAB PO DAILY Metoprolol Succinate (Metoprolol Succinate) 25 Mg Tab.sr.24h 1 TAB PO DAILY Montelukast Sodium (Montelukast Sodium) 10 Mg Tablet 1 TAB PO DAILY Rabeprazole Sodium (Rabeprazole Sodium) 20 Mg Tablet.dr 1 TAB PO DAILY for 30 Days, #30 TAB Spironolactone (Spironolactone) 25 Mg Tablet 1 TAB PO DAILY Temazepam (Temazepam) 15 Mg Capsule 1 CAP PO HS Discontinued Medications: Levothyroxine Sodium (Synthroid) 150 Mcg Tablet 1 TAB PO DAILY Discharge Summary: HPI as per admitting physician:The 74-year-old male with a past medical history of AFib, DVT, PE presented to the ER with a chief concern of left lower extremity pain. Stated that he had a fall about two weeks back when his dog pulled him . He fell on his left side and was dragged. States that he hit his head to the floor and lost consciousness for about 2-3 minutes. Since then, complains of left lower extremity pain mainly on the lateral side. Stated that the pain is mainly in the feet and radiates to above the knee. Also complains of low back pain. Also has low back pain and complains of increased pain with movement. Feels that he has we will fall if he walks by himself. Stated that the pain is sometimes sharp shooting and sometimes dull achy. Denies any nausea, vomiting, blurry vision after the fall. He also had two falls about 3-4 months back while working on a chimney. He went to [facility] on 03/29/2025 and was evaluated for chest pain. Back then, EKG showed sinus rhythm troponin negative. 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 No evidence for acute leakage or rupture, mesenteric panniculitis, calcification of the coronary arteries, subacute fracture of the left anterior 10th rib, subacute versus chronic fracture of the left anterior 4th and 5th ribs, multiple simple appearing parapelvic and cortical cysts of the bilateral kidneys, mild fatty atrophy of pancreas, multiple small hypodense nonenhancing lesions throughout the liver suggestive of small cysts and hamartomas, scoliosis with moderate degenerative changes of the lumbar spine. Patient denies any chest pain, shortness of breath, nausea or vomiting, dysuria, constipation or diarrhea, dizziness, palpitations or any other concerns. Stated that he wants the reason for the pain and does not want to leave and come back later. 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 He is unsure when he had a PE and left lower extremity DVT but thinks that it was few years back. Hospital course: A 74 year old male patient past history of AFib ,DVT, PE presented the ED with symptoms of intractable left lower extremity pain, patient's arterial brachial index was normal, tibia/fibula x-ray showed no fracture, no DVT on vascular ultrasound, Patient had classic findings of peripheral artery disease including shiny skin and hair loss over workman, vascular imaging showed 60% stenosis of the right common femoral artery. We added atorvastatin 20 mg in addition to his aspirin 81. Dr. Kaminski was consulted and recommended outpatient management. His lumbar spine MRI reported: Multilevel lumbar spondylosis with multilevel severe neural foraminal stenosis and nerve root impingement from L1-S1. We we managed his pain with [place], Percocet and gabapentin 300 mg b.i.d. recommended the patient to follow with his PCP after one week and establish a pain management doctor, and possible consult of a neurosurgery. Patient has history of hypothyroidism status post thyroidectomy, for which he used to take levothyroxine 150 mcg on levothyroxine 25 mcg, his TSH was 44 and free T4 was 0.7, we increased his levothyroxine dosage to 100 mcg. Patient has a history of paroxysmal atrial fibrillation and we continued his Eliquis. Patient has a known history of chronic kidney disease his creatinine was stable at 1.13 and patient's baseline is 1.1-1.3. Patient also has known history of celiac disease which was stable. We continued patient's home medications citalopram 40 mg for his anxiety. For his hypertension we continued his home medication metoprolol 25 mg and spironolactone [address] abdomen done on 03/29/2025 showed an atherosclerotic ulcer with partial mural thrombus at the infrarenal aorta, patient is asymptomatic. Recommended vascular surgery follow-up outpatient Significant imaging: VASCULAR ULTRASOUND: 04/06/2025 1. No deep venous thrombosis in the left lower extremity. Lower extremity CT: 04/06/2025 Moderate stenosis of the right [employer], approximately 60%. No hemodynamically significant stenosis of the bilateral SFA, popliteal arteries. Insufficient opacification of the bilateral infrapopliteal / mid to disc tibial vasculature limiting evaluation. Recommend duplex arterial ultrasound to evaluate and exclude arterial occlusion Echocardiogram: 04/08/2025 Normal LV size and function. Mild concentric hypertrophy. Overall LVEF appears to be around 60%. Right ventricle appears to bed severely dilated with reduced systolic function. Estimated PA systolic pressure is 22 mmHg. Left atrium is mildly dilated. Right atrium is mildly dilated. Probable trileaflet AV appears sclerotic without stenosis or insufficiency. Mild MV annular calcification and thickening. No stenosis with trace regurgitation. TV appears structurally normal with trace regurgitation. Normal pericardium. No pericardial effusion seen. Lumbar spine MRI: 04/09/25 The alignment of the lumbar spine vertebral bodies is preserved. Heterogeneous bone signal characteristics. Endplate edema at L3-L4 likely due to disc degeneration. The vertebral body heights are maintained. There is multilevel intervertebral disc space narrowing and diminished T2 signal intensity t hroughout the lumbar spine consistent with desiccation. The conus medullaris is normal in signal characteristics and terminates at the T12-L1 level. Paraspinal muscles are unremarkable. At the T12-L1 level, there is no evidence of central spinal canal or neuroforaminal stenosis. At the L1-L2 level, there is posterior disc bulge, ligamentum flavum thickening and facet hypertrophy. There is mild spinal stenosis. There is narrowing of the lateral recesses. Severe bilateral neural foraminal stenosis. At the L2-L3 level, there is broad-based posterior disc bulge, ligamentum flavum thickening and facet hypertrophy. There is moderate spinal stenosis. There is severe narrowing of the lateral recesses. Severe bilateral neural foraminal stenosis with impingement of the exiting bilateral L2 nerve roots. At the L3-L4 level, there is broad-based posterior disc bulge, ligamentum flavum thickening and facet hypertrophy. There is moderate to severe spinal stenosis. Severe bilateral neural foraminal stenosis with impingement of the bilateral exiting L3 nerve roots. At the L4-L5 level, there is broad-based posterior disc bulge and facet h ypertrophy. There is mild spinal stenosis. Narrowing of the lateral recesses. Severe bilateral neural foraminal stenosis. At the L5-S1 level, there is broad-based posterior disc bulge. There is narrowing of the lateral recesses. No significant spinal stenosis. Moderate to severe right and severe left neural foraminal stenosis. Impingement of the exiting left L5 nerve root. Lower extremity MRI:04/09/2025 1. Mild left hip osteoarthritis. 2. Unremarkable MRI appearance of the visualized portions of the left sciatic nerve. 3. Lumbar spondylosis. Please see separate MRI lumbar spinal cord. Vital Signs Date Time Temp Pulse Resp B/P (MAP) Pulse Ox O2 Delivery O2 Flow Rate FiO2 04/10/25 11:45 81 04/10/25 11:02 16 Room Air 0.0 04/10/25 10:56 97 21 04/10/25 10:00 97.8 150/82 (104) Laboratory Tests Test 04/09/25 04:25 04/10/25 04:39 White Blood Count 6.9 X10'3 6.0 X10'3 Red Blood Count 4.16 X10'6 3.94 X10'6 Hemoglobin 14.0 g/dl 13.2 g/dl Hematocrit 41.5 % 39.6 % Mean Corpuscular Volume 99.9 FL 100.4 FL Mean Corpuscular Hemoglobin 33.6 PG 33.4 PG Mean Corpuscular Hemoglobin Concent 33.7 g/dL 33.3 g/dL Red Cell Distribution Width 14.1 % 14.2 % Platelet Count 269 X10'3 243 X10'3 Mean Platelet Volume 6.7 FL 6.5 FL Neutrophils (%) (Auto) 48.1 % 53.9 % Lymphocytes (%) (Auto) 43.5 % 35.7 % Monocytes (%) (Auto) 7.0 % 8.3 % Eosinophils (%) (Auto) 1.2 % 1.8 % Basophils (%) (Auto) 0.2 % 0.3 % Neutrophils # (Auto) 3.3 X10'3 3.3 X10'3 Lymphocytes # (Auto) 3.0 X10'3 2.2 X10'3 Monocytes # (Auto) 0.5 X10'3 0.5 X10'3 Eosinophils # (Auto) 0.1 X10'3 0.1 X10'3 Basophils # (Auto) 0.0 X10'3 0.0 X10'3 CBC Comment Prothrombin Time 11.7 SECONDS 12.1 SECONDS INR International Normalized Ratio 1.2 INR 1.2 INR Activated Partial Thromboplast Time 31 SECONDS Coagulation Comments Sodium Level 140 MMOL/L 140 MMOL/L Potassium Level 4.4 MMOL/L 4.5 MMOL/L Chloride Level 104 MMOL/L 106 MMOL/L Carbon Dioxide Level 27.6 MMOL/L 24.4 MMOL/L Anion Gap 8 10 Blood Urea Nitrogen 15 MG/DL 13 MG/DL Creatinine 1.13 MG/DL 1.27 MG/DL Estimated GFR/1.73 m2 63 ML/MIN 55 ML/MIN BUN/Creatinine Ratio 13.3 10.2 Glucose Level 83 MG/DL 90 MG/DL Calcium Level 8.6 MG/DL 8.5 MG/DL Phosphorus Level 3.2 MG/DL 2.5 MG/DL Magnesium Level 1.5 MG/DL 1.3 MG/DL Total Bilirubin 0.7 MG/DL 0.8 MG/DL Aspartate Amino Transf (AST/SGOT) 32 U/L 22 U/L Alanine Aminotransferase (ALT/SGPT) 30 U/L 28 U/L Alkaline Phosphatase 62 IU/L 58 IU/L Total Protein 7.1 G/DL 6.4 G/DL Albumin 3.5 G/DL 3.2 G/DL Globulin 3.6 G/DL 3.2 G/DL Albumin/Globulin Ratio 1.0 1.0 Chemistry Comments Discharge medication: New Medications: Gabapentin (Neurontin) 300 Mg Capsule Aspirin (Ecotrin*) 81 Mg Tablet. Levothyroxine Sodium 100 Mcg Tablet Continued Medications: Albuterol Sulfate (Ventolin Hfa) 18 Gm Hfa.aer.ad Allopurinol 300 Mg Tablet Apixaban (Eliquis) 5 Mg Tablet Benazepril HCl 40 Mg Tablet Budesonide/Formoterol Fumarate (Symbicort 160-4.5 Mcg Inhaler) 10.2 Gm Hfa.aer.ad Citalopram Hydrobromide (Citalopram HBr) 40 Mg Tablet Colchicine 0.6 Mg Tablet Liothyronine Sodium* 25 Mcg Tablet Metoprolol Succinate 25 Mg Tab.sr.24h Montelukast Sodium 10 Mg Tablet Rabeprazole Sodium 20 Mg Tablet. Spironolactone 25 Mg Tablet Temazepam 15 Mg Capsule Discontinued Medications: Levothyroxine Sodium (Synthroid) 150 Mcg Tablet Discharge advise: Please follow-up with your primary care doctor Kristi Tapia within a week of discharge. Please discuss with your primary care for a pain med referral. Please ask your primary care doctor to get youa referral for Neurology for your pain. Please note we have added gabapentin 300 mg b.i.d., please continue. We have increased her levothyroxine to 200 mcg, in view of increased TSH level, please recheck your thyroid labs after four weeks. Added aspirin 81 mg for vascular protection. Call 911 or return to emergency in case of increased pain or swelling of left lower extremity. *Problems/Diagnosis: (1) Intractable neuropathic pain of left lower extremity Status: Acute (2) Hypothyroidism (3) History of DVT (deep vein thrombosis) Total Time Spent on D/C: > 30 Minutes Date of Service: Apr 10, 2025 Billing Provider: NYDIA GONZALEZ MD, JAHNAVI, RES Apr 10, 2025 18:01
== END 2025-04-10 14:08 | disposition home health service (06) | DRG 552 ==
LOC: ER 23:25 → ED HOLD 04-06 04:51 → OBSVTOIN 04-06 04:51 → ORTHO 4S 04-06 06:45
PROVIDERS: ADMIT Surgery Surgical Critical Care; ATTEND Family Medicine
PROC: B42H1ZZ Computerized Tomography (CT Scan) of Bilateral Lower Extremity Arteries using Low Osmolar Contrast (ICD-10-PCS; principal; 2025-04-06)
DX: M47.816 Spondylosis without myelopathy or radiculopathy, lumbar region (principal); I73.9 Peripheral vascular disease, unspecified; M48.061 Spinal stenosis, lumbar region without neurogenic claudication; N18.2 Chronic kidney disease, stage 2 (mild); K90.0 Celiac disease; G62.9 Polyneuropathy, unspecified; I51.3 Intracardiac thrombosis, not elsewhere classified; I48.0 Paroxysmal atrial fibrillation; F41.9 Anxiety disorder, unspecified; I12.9 Hypertensive chronic kidney disease with stage 1 through stage 4 chronic kidney disease, or unspecified chronic kidney disease; E89.0 Postprocedural hypothyroidism; J44.89 Other specified chronic obstructive pulmonary disease; Z80.0 Family history of malignant neoplasm of digestive organs
CPT/HCPCS: 36415; 70450; 71045; 72100; 72148; 73502; 73590; 73706; 73721; 80048; 80053; 80061; 80305; 81001; 82565; 82607; 83036; 83735; 84100; 84132; 84439; 84443; 85025; 85610; 85730; 87081; 93005; 93306; 93922; 93925; 93971; 94640; 94760; 96361; 96372; 96374; 96375; 99285; G0378; J0131; J1885; J2360; J2405; J3010; J7030; Q9967